=== PATIENT | male | born 1945 | race Two or more races ===

== ENCOUNTER 2023-05-30 11:57 | Inpatient (IN) | payer MEDICARE, MEDICAID ==
[~2023-05-30] VITALS: Ht 198.1 cm; Wt 73.5 kg
[2023-05-30 13:00] LABS: Urine Bacteria MOD /hpf (None Seen); Urine Blood 3+ /uL (Negative); Urine Specific Gravity 1.015 (1.001-1.035); Urine WBC 89 /hpf (0 - 3)
[2023-05-30] MEDS ORDERED: cefTRIAXone SOD 1,000 MG VL IM ONE (14:00)
[2023-05-30] MEDS ORDERED: SODIUM CHLORIDE 0.9% 500 ML IV ONE (14:15)
[2023-05-30] MEDS ORDERED: cefTRIAXone 1GM/50ML D5W 50 ML IV ONE (14:15)
[2023-05-30 14:56] LABS: Basophils # (auto) 0.1 10 ^3/uL (0-0.2); Hemoglobin 10.7 g/dL (13.5-17.5); Neutrophils # (auto) 4.5 10 ^3/uL (1.6-8.6)
[2023-05-30 14:58] LABS: Basophils % (auto) 0.7 % (0.0-2.0); Eosinophils # (auto) 0.3 10 ^3/uL (0-0.8); Eosinophils % (auto) 4.4 % (0.0-7.0); Hematocrit 33.7 % (41.0-53.0); Lymphocytes # (auto) 1.5 10 ^3/uL (0.4-5.4); Lymphocytes % (auto) 21.5 % (10.0-50.0); Mean Corpuscular Hemoglobin 21.2 pg (28.0-32.0); Mean Corpuscular Hgb Conc. 31.8 g/dL (32.0-36.0); Mean Corpuscular Volume 66.7 fL (80.0-100.0); Monocytes # (auto) 0.5 10 ^3/uL (0-1.3); Monocytes % (auto) 6.9 % (0.0-12.0); Neutrophils % (auto) 66.5 % (37.0-80.0); Nucleated Red Blood Cells % 0.3 %; Red Blood Cells 5.05 10^6/uL (4.5-5.90); Red Cell Distribution Width 15.4 % (11.8-14.3); White Blood Cell 6.8 10^3/uL (4.4-10.8)
[2023-05-30 15:04] LABS: INR 1.05 (0.9-1.15)
[2023-05-30 15:16] LABS: Calcium 8.4 mg/dL (8.5-10.1); Potassium 4.2 mmol/L (3.5-5.1)
[2023-05-30 15:35] LABS: Albumin 3.7 g/dL (3.4-5.0); BUN/Creatinine Ratio 17.4 (10.0-20.0); Bilirubin, Total 0.3 mg/dL (0.2-1.0); Total Protein 7.7 g/dL (6.4-8.2)
[2023-05-30] MEDS ORDERED: ONDANSETRON HCL 4 MG/2 ML VIAL IV PRN (16:15)
[2023-05-30] MEDS ORDERED: HYDROcodone-ACET 5/325MG TAB PO PRN (16:15)
[2023-05-30] MEDS ORDERED: MORPHINE SULFATE INJ 2 MG/ml SYRG IV PRN (16:15)
[2023-05-30] MEDS ORDERED: ACETAMINOPHEN 500 MG TAB PO PRN (16:15)
[2023-05-30] MEDS: CARBIDOPA W LEVODOPA 25/100mg TABLET PO SCH (21:52)
[2023-05-30 22:00] VITALS: BP 106/48
[2023-05-31 05:00] VITALS: BP 134/70
[2023-05-31] MEDS: CARBIDOPA W LEVODOPA 25/100mg TABLET PO SCH ×4 (06:00→21:49)
[2023-05-31 06:31] LABS: Eosinophils # (auto) 0.2 10 ^3/uL (0-0.8); Hematocrit 33.1 % (41.0-53.0); Hemoglobin 10.6 g/dL (13.5-17.5); Monocytes # (auto) 0.4 10 ^3/uL (0-1.3); Neutrophils # (auto) 4.7 10 ^3/uL (1.6-8.6); Red Blood Cells 4.93 10^6/uL (4.5-5.90)
[2023-05-31 06:33] LABS: Basophils # (auto) 0.1 10 ^3/uL (0-0.2); Basophils % (auto) 0.9 % (0.0-2.0); Eosinophils % (auto) 3.6 % (0.0-7.0); Lymphocytes # (auto) 1.1 10 ^3/uL (0.4-5.4); Lymphocytes % (auto) 17.4 % (10.0-50.0); Mean Corpuscular Hemoglobin 21.4 pg (28.0-32.0); Mean Corpuscular Hgb Conc. 31.9 g/dL (32.0-36.0); Monocytes % (auto) 5.5 % (0.0-12.0); Neutrophils % (auto) 72.6 % (37.0-80.0); Nucleated Red Blood Cells % 0.2 %; White Blood Cell 6.4 10^3/uL (4.4-10.8)
[2023-05-31 06:45] LABS: BUN/Creatinine Ratio 23.2 (10.0-20.0); Calcium 8.2 mg/dL (8.5-10.1); Potassium 3.7 mmol/L (3.5-5.1)
[2023-05-31 08:00] VITALS: BP 127/69
[2023-05-31] MEDS ORDERED: OXYB5TAB10 PO (08:00)
[2023-05-31] MEDS ORDERED: CLON0.1T PO (08:00)
[2023-05-31] MEDS ORDERED: CIPR500T4 PO (08:00)
[2023-05-31] MEDS ORDERED: TAMS0.4C36 PO (08:00)
[2023-05-31] MEDS ORDERED: MECL1TAB31 PO (08:00)
[2023-05-31] MEDS ORDERED: LOSA50TA46 PO (08:00)
[2023-05-31] MEDS ORDERED: CARB10TA21 (08:00)
[2023-05-31 10:08] VITALS: BP 127/69
[2023-05-31] MEDS: cefTRIAXone 1GM/50ML D5W 50 ML IV SCH (11:36)
[2023-05-31] MEDS: LOSARTAN POTASSIUM 50 MG TAB PO SCH (11:37)
[2023-05-31] MEDS: FUROSEMIDE 20 MG/2 ML VIAL IV SCH (11:38)
[2023-05-31 14:34] VITALS: BP 133/57
[2023-05-31] MEDS: TAMSULOSIN HYDROCHLORIDE 0.4 MG CAP PO SCH (18:12)
[2023-05-31 22:00] VITALS: BP 92/44
[2023-05-31 22:30] VITALS: BP 106/49
[2023-06-01] MEDS ORDERED: CARB25TA77 PO ×2 (00:01→00:08)
[2023-06-01] MEDS ORDERED: DIAZ-680 PO (00:18)
[2023-06-01] MEDS ORDERED: OXYBUTYNIN CHL 5 MG TAB PO PRN (00:30)
[2023-06-01 05:00] VITALS: BP 105/42
[2023-06-01] MEDS: CARBIDOPA W LEVODOPA 25/100mg TABLET PO SCH ×4 (06:00→21:10)
[2023-06-01 08:00] VITALS: BP 128/58
[2023-06-01] MEDS: cefTRIAXone 1GM/50ML D5W 50 ML IV SCH (08:34)
[2023-06-01 09:00] VITALS: BP 128/58
[2023-06-01] MEDS: FUROSEMIDE 20 MG/2 ML VIAL IV SCH (11:00)
[2023-06-01] MEDS: LOSARTAN POTASSIUM 50 MG TAB PO SCH (11:00)
[2023-06-01 13:00] VITALS: BP 125/61
[2023-06-01 17:00] VITALS: BP 101/41
[2023-06-01] MEDS: TAMSULOSIN HYDROCHLORIDE 0.4 MG CAP PO SCH (17:08)
[2023-06-01 22:00] VITALS: BP 89/44
[2023-06-02] MEDS ORDERED: TEMAZEPAM 15 MG CAP PO ONE (00:45)
[2023-06-02 05:00] VITALS: BP 105/46
[2023-06-02] MEDS: CARBIDOPA W LEVODOPA 25/100mg TABLET PO SCH ×3 (05:34→17:54)
[2023-06-02] MEDS: cefTRIAXone 1GM/50ML D5W 50 ML IV SCH (08:55)
[2023-06-02] MEDS: LOSARTAN POTASSIUM 50 MG TAB PO SCH (08:56)
[2023-06-02] MEDS: FUROSEMIDE 20 MG/2 ML VIAL IV SCH (08:56)
[2023-06-02 09:00] VITALS: BP 146/74
[2023-06-02 13:00] VITALS: BP 116/58
[2023-06-02 15:46] VITALS: BP 123/66
[2023-06-02 16:43] VITALS: BP 116/61
[2023-06-02] MEDS: TAMSULOSIN HYDROCHLORIDE 0.4 MG CAP PO SCH (17:45)
[2023-06-02] MEDS ORDERED: diazePAM 2 MG TAB PO SCH (22:00)
== END 2023-06-02 18:32 | DRG 690 ==
LOC: ER 11:57 → OVERFLOW 16:15 → CENTRAL 17:27
PROVIDERS: ADMIT Nurse Practitioner Acute Care; ATTEND Family Medicine
PROC: 05HB33Z Insertion of Infusion Device into Right Basilic Vein, Percutaneous Approach (ICD-10-PCS; principal; 2023-06-01)
PROC: B54MZZA Ultrasonography of Right Upper Extremity Veins, Guidance (ICD-10-PCS; 2023-06-01)
DX: N39.0 Urinary tract infection, site not specified (principal); Z68.1 Body mass index [BMI] 19.9 or less, adult; I10 Essential (primary) hypertension; G20 Parkinson's disease; E78.5 Hyperlipidemia, unspecified; E11.9 Type 2 diabetes mellitus without complications; Z90.79 Acquired absence of other genital organ(s); Z20.822 Contact with and (suspected) exposure to COVID-19; N40.1 Benign prostatic hyperplasia with lower urinary tract symptoms
CPT/HCPCS: 36415; 74176; 80048; 80053; 81001; 84154; 85025; 85610; 87040; 87086; 87426; 93306; 96360; 96372; G0378; J0696

== ENCOUNTER 2024-03-22 20:43 | Inpatient (IN) | payer MEDICARE, MEDICAID ==
[~2024-03-22] VITALS: Ht 167.6 cm; Wt 75.8 kg
[~2024-03-22 20:43] MED LIST: CARB25TA77 PO; CIPR500T4 PO; CLON0.1T PO; DIAZ-680 PO; MECL12.586 PO; OXYB5TAB14 PO; TAMS0.4C36 PO
[2024-03-22 21:38] LABS: Basophils # (auto) 0 10 ^3/uL (0-0.2); Basophils % (auto) 0.2 % (0.0-2.0); Eosinophils # (auto) 0 10 ^3/uL (0-0.8); Hemoglobin 11.9 g/dL (13.5-17.5); Neutrophils # (auto) 4.9 10 ^3/uL (1.6-8.6)
[2024-03-22 21:40] LABS: Eosinophils % (auto) 0.2 % (0.0-7.0); Hematocrit 37.3 % (41.0-53.0); Lymphocytes # (auto) 0.8 10 ^3/uL (0.4-5.4); Lymphocytes % (auto) 11.9 % (10.0-50.0); Mean Corpuscular Hemoglobin 20.9 pg (28.0-32.0); Mean Corpuscular Volume 65.5 fL (80.0-100.0); Monocytes # (auto) 0.9 10 ^3/uL (0-1.3); Monocytes % (auto) 13.8 % (0.0-12.0); Neutrophils % (auto) 73.9 % (37.0-80.0); Nucleated Red Blood Cells % 0.1 %; Red Blood Cells 5.69 10^6/uL (4.5-5.90); Red Cell Distribution Width 14.9 % (11.8-14.3); White Blood Cell 6.6 10^3/uL (4.4-10.8)
[2024-03-22 21:55] LABS: Albumin 4.3 g/dL (3.2-4.8); Alkaline Phosphatase 86 U/L (46-116); Anion Gap 8 (5-15); Aspartate Aminotransferase 37 U/L (13-40); BUN/Creatinine Ratio 13.9 (10.0-20.0); Blood Urea Nitrogen 16 mg/dL (9-23); Carbon Dioxide 23 mmol/L (20-30); Chloride 99 mmol/L (98-107); Glucose 151 mg/dL (74-106); Potassium 3.8 mmol/L (3.5-5.1); Sodium 130 mmol/L (136-145)
[2024-03-22 21:56] LABS: Bilirubin, Total 0.4 mg/dL (0.2-1.0); Total Protein 7.6 g/dL (5.7-8.2)
[2024-03-22 22:10] LABS: Alanine Aminotransferase < 9 U/L (7-40)
[2024-03-22 22:19] LABS: Anisocytosis Slight; Hypochromia Slight; Large Platelets FEW; Ovalocytes FEW; Platelet Estimate Adequa
[2024-03-22] MEDS ORDERED: NITROGLYCERIN 0.4 MG SL TAB SL PRN (23:30)
[2024-03-22] MEDS ORDERED: ONDANSETRON HCL 4 MG/2 ML VIAL IV PRN (23:30)
[2024-03-22] MEDS ORDERED: MORPHINE SULFATE INJ 2 MG/ml SYRG IV PRN (23:30)
[2024-03-23] VITALS (12 sets, daily range): BP systolic 96–190; BP diastolic 56–93; PULSE 89–123; RESP 16–24; TEMP 98.3–101.4; O2SAT 93–98
[2024-03-23] MEDS: NITROGLYCERIN 0.4 MG SL TAB SL ONE (00:13)
[2024-03-23] MEDS: ASPirin-EC 325mg tab PO ONE (00:17)
[2024-03-23] MEDS: FUROSEMIDE 40 MG/4 ML VIAL IV ONE ×2 (00:17→19:07)
[2024-03-23] MEDS: ENOXAPARIN SOD 100 MG/1 ML SYRINGE SC ONE (00:17)
[2024-03-23 04:37] LABS: Basophils # (auto) 0 10 ^3/uL (0-0.2); Basophils % (auto) 0.2 % (0.0-2.0); Eosinophils # (auto) 0 10 ^3/uL (0-0.8); Eosinophils % (auto) 0.2 % (0.0-7.0); Hematocrit 34.8 % (41.0-53.0); Hemoglobin 11.2 g/dL (13.5-17.5); Lymphocytes # (auto) 0.2 10 ^3/uL (0.4-5.4); Lymphocytes % (auto) 2.5 % (10.0-50.0); Mean Corpuscular Hemoglobin 21.2 pg (28.0-32.0); Mean Corpuscular Hgb Conc. 32.3 g/dL (32.0-36.0); Mean Corpuscular Volume 65.8 fL (80.0-100.0); Monocytes # (auto) 0.9 10 ^3/uL (0-1.3); Monocytes % (auto) 10.7 % (0.0-12.0); Neutrophils % (auto) 86.4 % (37.0-80.0); Nucleated Red Blood Cells % 0.1 %; Red Blood Cells 5.29 10^6/uL (4.5-5.90)
[2024-03-23 04:58] LABS: Albumin 3.9 g/dL (3.2-4.8); Alkaline Phosphatase 76 U/L (46-116); Anion Gap 7 (5-15); Aspartate Aminotransferase 37 U/L (13-40); BUN/Creatinine Ratio 16.7 (10.0-20.0); Blood Urea Nitrogen 19 mg/dL (9-23); Calcium 8.7 mg/dL (8.7-10.4); Carbon Dioxide 27 mmol/L (20-30); Chloride 97 mmol/L (98-107); Glucose 152 mg/dL (74-106); Potassium 3.8 mmol/L (3.5-5.1); Sodium 131 mmol/L (136-145)
[2024-03-23 04:59] LABS: Bilirubin, Total 0.3 mg/dL (0.2-1.0); Total Protein 6.9 g/dL (5.7-8.2)
[2024-03-23 05:01] LABS: Alanine Aminotransferase < 9 U/L (7-40)
[2024-03-23] MEDS ORDERED: TEMAZEPAM 15 MG CAP PO PRN (06:00)
[2024-03-23] MEDS: CARBIDOPA W LEVODOPA 25/100mg TABLET PO SCH (06:39)
[2024-03-23 10:20] LABS: Magnesium 1.8 mg/dL (1.6-2.6)
[2024-03-23 10:41] LABS: % Iron Saturation 8.2 % (20-55)
[2024-03-23 10:48] LABS: Ferritin 233.2 ng/mL (22-322); Folate (Folic Acid) 19.3 ng/mL (>5.38)
[2024-03-23] MEDS: DOXYCYCLINE 100MG/250ML 250 ML IV SCH (12:13)
[2024-03-23] MEDS: FUROSEMIDE 40 MG TAB PO SCH (12:17)
[2024-03-23] MEDS: cloNIDine HCL 0.1 MG TAB PO SCH (12:17)
[2024-03-23] MEDS: hydrALAZINE HCL 20 MG/ML VL IV PRN (12:40)
[2024-03-23] MEDS: ACETAMINOPHEN 325 MG TAB PO PRN (14:15)
[2024-03-23] MEDS: cefTRIAXone 1GM/50ML D5W 50 ML IV ONE (14:16)
[2024-03-23] MEDS: FUROSEMIDE 20 MG/2 ML VIAL IV ONE (15:00)
[2024-03-23] MEDS: ALBUTEROL SULF 2.5 MG/0.5ML(0.5%) NEB SOLN ONE (15:18)
[2024-03-23 15:51] LABS: INR 1.04 (0.9-1.15); Partial Thromboplastin Time 35.1 SEC (24.5-34.5); Prothrombin Time 10.9 sec (9.3-11.8)
[2024-03-23] MEDS: CHOLECALCIFEROL (VITD3) 1,000UNIT=25mCg TAB PO ONE (16:45)
[2024-03-23] MEDS ORDERED: DEXTROSE (50%) 50ML SYRG IV PRN (16:45)
[2024-03-23] MEDS: TAMSULOSIN HYDROCHLORIDE 0.4 MG CAP PO SCH (19:00)
[2024-03-23] MEDS: ACCU-CHEK COMFORT CURVE STRIP VI SCH (19:00)
[2024-03-23] MEDS: InsuLIN REG 1unit/0.01ml Soln (100units/ml) SC SCH (19:17)
[2024-03-23] MEDS: SACUBITRIL-VALSARTAN 24mg/26mg TAB PO SCH (22:00)
[2024-03-23] MEDS: ATORVASTATIN 20 MG TAB PO SCH (22:00)
[2024-03-23] MEDS: ENOXAPARIN SOD 40 MG/0.4 ML SYRINGE SC SCH (22:00)
[2024-03-23] MEDS ORDERED: ACETAMINOPHEN 650 MG RECT SUPP PR PRN (22:30)
[2024-03-23] MEDS: ACETAMINOPHEN 650 MG RECT SUPP PR ONE (22:40)
[2024-03-23 23:00] LABS: Basophils # (auto) 0 10 ^3/uL (0-0.2); Basophils % (auto) 0.1 % (0.0-2.0); Eosinophils # (auto) 0 10 ^3/uL (0-0.8); Lymphocytes # (auto) 0.5 10 ^3/uL (0.4-5.4); Monocytes # (auto) 0.9 10 ^3/uL (0-1.3)
[2024-03-23 23:02] LABS: Hematocrit 38.2 % (41.0-53.0); Hemoglobin 11.9 g/dL (13.5-17.5); Lymphocytes % (auto) 6.2 % (10.0-50.0); Mean Corpuscular Hemoglobin 20.5 pg (28.0-32.0); Mean Corpuscular Hgb Conc. 31.3 g/dL (32.0-36.0); Mean Corpuscular Volume 65.7 fL (80.0-100.0); Monocytes % (auto) 10.8 % (0.0-12.0); Neutrophils # (auto) 6.7 10 ^3/uL (1.6-8.6); Neutrophils % (auto) 82.9 % (37.0-80.0); Nucleated Red Blood Cells % 0.1 %; Red Blood Cells 5.81 10^6/uL (4.5-5.90); Red Cell Distribution Width 15.4 % (11.8-14.3); White Blood Cell 8.1 10^3/uL (4.4-10.8)
[2024-03-23 23:18] LABS: Albumin 4.2 g/dL (3.2-4.8); Alkaline Phosphatase 82 U/L (46-116); Anion Gap 6 (5-15); Aspartate Aminotransferase 33 U/L (13-40); Blood Urea Nitrogen 19 mg/dL (9-23); Calcium 8.8 mg/dL (8.7-10.4); Carbon Dioxide 31 mmol/L (20-30); Chloride 93 mmol/L (98-107); Glucose 157 mg/dL (74-106); Potassium 3.8 mmol/L (3.5-5.1); Sodium 130 mmol/L (136-145)
[2024-03-23 23:19] LABS: Bilirubin, Total 0.3 mg/dL (0.2-1.0); Total Protein 7.4 g/dL (5.7-8.2)
[2024-03-23 23:50] LABS: Alanine Aminotransferase < 9 U/L (7-40)
[2024-03-24] VITALS (14 sets, daily range): BP systolic 0–150; BP diastolic 59–84; PULSE 81–113; RESP 17–20; TEMP 98–98.6; O2SAT 94–98
[2024-03-24 01:55] LABS: Base Excess -1.1 mmol/L (-2.0-2.0)
[2024-03-24 06:22] LABS: Basophils # (auto) 0 10 ^3/uL (0-0.2); Basophils % (auto) 0.1 % (0.0-2.0); Eosinophils # (auto) 0 10 ^3/uL (0-0.8); Lymphocytes # (auto) 0.4 10 ^3/uL (0.4-5.4); Mean Corpuscular Volume 65.8 fL (80.0-100.0); Monocytes # (auto) 1.2 10 ^3/uL (0-1.3)
[2024-03-24 06:26] LABS: Eosinophils % (auto) 0.1 % (0.0-7.0); Hemoglobin 11.9 g/dL (13.5-17.5); Lymphocytes % (auto) 6.2 % (10.0-50.0); Mean Corpuscular Hemoglobin 21.1 pg (28.0-32.0); Monocytes % (auto) 16.3 % (0.0-12.0); Neutrophils # (auto) 5.5 10 ^3/uL (1.6-8.6); Neutrophils % (auto) 77.3 % (37.0-80.0); Nucleated Red Blood Cells % 0.1 %; Red Blood Cells 5.62 10^6/uL (4.5-5.90); White Blood Cell 7.1 10^3/uL (4.4-10.8)
[2024-03-24 06:29] LABS: Anion Gap 7 (5-15); Carbon Dioxide 31 mmol/L (20-30); Chloride 93 mmol/L (98-107); Potassium 3.7 mmol/L (3.5-5.1); Sodium 131 mmol/L (136-145)
[2024-03-24 06:30] LABS: Calcium 8.6 mg/dL (8.5-10.1)
[2024-03-24 06:35] LABS: BUN/Creatinine Ratio 17.6 (10.0-20.0); Blood Urea Nitrogen 18 mg/dL (9-23); Glucose 121 mg/dL (74-106)
[2024-03-24 07:03] LABS: Magnesium 1.8 mg/dL (1.6-2.6)
[2024-03-24 08:58] LABS: Base Excess 0.7 mmol/L (-2.0-2.0)
[2024-03-24] MEDS: cefTRIAXone 1GM/50ML D5W 50 ML IV SCH (09:11)
[2024-03-24] MEDS: FUROSEMIDE 40 MG/4 ML VIAL IV SCH (09:12)
[2024-03-24] MEDS: CHOLECALCIFEROL (VITD3) 1,000UNIT=25mCg TAB PO SCH (09:12)
[2024-03-24] MEDS: LORazepam 2MG/ML-1ML VIAL IV ONE (09:15)
[2024-03-24] MEDS: FUROSEMIDE 20 MG/2 ML VIAL ONE (11:31)
[2024-03-25] VITALS (12 sets, daily range): BP systolic 103–132; BP diastolic 47–66; PULSE 90–117; RESP 16–21; TEMP 98.2–99.4; O2SAT 91–98
[2024-03-25 08:53] LABS: Base Excess 6.4 mmol/L (-2.0-2.0)
[2024-03-25 09:04] LABS: Basophils # (auto) 0 10 ^3/uL (0-0.2); Eosinophils # (auto) 0 10 ^3/uL (0-0.8); Hemoglobin 12.5 g/dL (13.5-17.5); Lymphocytes # (auto) 0.3 10 ^3/uL (0.4-5.4); Lymphocytes % (auto) 4.8 % (10.0-50.0)
[2024-03-25 09:06] LABS: Basophils % (auto) 0.3 % (0.0-2.0); Hematocrit 39.2 % (41.0-53.0); Mean Corpuscular Hemoglobin 20.8 pg (28.0-32.0); Mean Corpuscular Hgb Conc. 31.9 g/dL (32.0-36.0); Mean Corpuscular Volume 65.2 fL (80.0-100.0); Monocytes # (auto) 0.9 10 ^3/uL (0-1.3); Monocytes % (auto) 13.2 % (0.0-12.0); Neutrophils # (auto) 5.3 10 ^3/uL (1.6-8.6); Neutrophils % (auto) 81.7 % (37.0-80.0); Red Blood Cells 6.01 10^6/uL (4.5-5.90); Red Cell Distribution Width 15.1 % (11.8-14.3); White Blood Cell 6.5 10^3/uL (4.4-10.8)
[2024-03-25 09:15] LABS: Anion Gap 7 (5-15); Carbon Dioxide 33 mmol/L (20-30); Chloride 91 mmol/L (98-107); Potassium 3.9 mmol/L (3.5-5.1); Sodium 131 mmol/L (136-145)
[2024-03-25] MEDS: acetaZOLAMIDE SODIUM 500 MG VL IV ONE (09:15)
[2024-03-25 09:21] LABS: BUN/Creatinine Ratio 21.4 (10.0-20.0); Blood Urea Nitrogen 18 mg/dL (9-23); Glucose 151 mg/dL (74-106)
[2024-03-25] MEDS: ALBUTEROL SULF 2.5 MG/0.5ML(0.5%) NEB SOLN NEB PRN (10:29)
[2024-03-25] MEDS: FUROSEMIDE 20 MG/2 ML VIAL IV SCH (10:50)
[2024-03-25 11:01] LABS: Magnesium 1.9 mg/dL (1.6-2.6)
[2024-03-25] MEDS ORDERED: DIAZ10TA3 PO (11:43)
[2024-03-25] MEDS ORDERED: AMIT25TA20 PO (12:05)
[2024-03-25] MEDS ORDERED: NITR100C6 PO (12:05)
[2024-03-25] MEDS ORDERED: ATOR10TA PO (12:05)
[2024-03-25] MEDS ORDERED: MIRT1TAB38 PO (12:05)
[2024-03-25] MEDS ORDERED: LOSA-534 PO (12:05)
[2024-03-25] MEDS ORDERED: FINA5TAB4 PO (12:05)
[2024-03-25 14:33] LABS: Body Fluid Polymorphonuclear 10 % (0-25); Body Fluid Red Blood Cells 2350 CUMM (0-2000); Body Fluid White Blood Cells 220 CUMM (0-200); Body Fluid pH 8
[2024-03-25] MEDS: ASPirin 81 mg TAB PO ONE (18:49)
[2024-03-25 20:18] LABS: Alanine Aminotransferase 16 U/L (7-40); Albumin 3.5 g/dL (3.2-4.8); Alkaline Phosphatase 68 U/L (46-116); Anion Gap 5 (5-15); Aspartate Aminotransferase 23 U/L (13-40); BUN/Creatinine Ratio 18.5 (10.0-20.0); Bilirubin, Total 0.3 mg/dL (0.2-1.0); Blood Urea Nitrogen 17 mg/dL (9-23); Calcium 8.6 mg/dL (8.5-10.1); Carbon Dioxide 33 mmol/L (20-30); Chloride 94 mmol/L (98-107); Glucose 184 mg/dL (74-106); Potassium 3.8 mmol/L (3.5-5.1); Sodium 132 mmol/L (136-145); Total Protein 6.5 g/dL (5.7-8.2)
[2024-03-26] VITALS (15 sets, daily range): BP systolic 89–143; BP diastolic 38–68; PULSE 72–98; RESP 13–22; TEMP 98.1–99.9; O2SAT 93–100
[2024-03-26 05:47] LABS: Hemoglobin 11.3 g/dL (13.5-17.5)
[2024-03-26 05:50] LABS: Hematocrit 36.2 % (41.0-53.0); Mean Corpuscular Hemoglobin 20.4 pg (28.0-32.0); Mean Corpuscular Hgb Conc. 31.2 g/dL (32.0-36.0); Mean Corpuscular Volume 65.3 fL (80.0-100.0); Red Blood Cells 5.55 10^6/uL (4.5-5.90); Red Cell Distribution Width 15.1 % (11.8-14.3); White Blood Cell 6.5 10^3/uL (4.4-10.8)
[2024-03-26 05:56] LABS: INR 1.06 (0.9-1.15); Partial Thromboplastin Time 29.7 SEC (24.5-34.5); Prothrombin Time 11.2 sec (9.3-11.8)
[2024-03-26 06:05] LABS: Basophils % (manual) 0 (0.0-2.0); Blast Cells 0; Chloride 94 mmol/L (98-107); Metamyelocytes % 0; Myelocytes % 0; Potassium 3.8 mmol/L (3.5-5.1); Promyelocytes % 0; Reactive Lymphocytes 0; Sodium 132 mmol/L (136-145)
[2024-03-26 06:06] LABS: Anion Gap 5 (5-15); Calcium 8.5 mg/dL (8.5-10.1); Carbon Dioxide 33 mmol/L (20-30)
[2024-03-26 06:11] LABS: BUN/Creatinine Ratio 25.3 (10.0-20.0); Blood Urea Nitrogen 21 mg/dL (9-23); Glucose 139 mg/dL (74-106)
[2024-03-26 08:24] LABS: Band Neutrophils % (manual) 4; Eosinophils % (manual) 6 (0-7); Hypochromia Moderate; Lymphocytes % (manual) 14 (10.0-50.0); Monocytes % (manual) 12 (0-12); Platelet Estimate Adequate; Target Cell FEW
[2024-03-26] MEDS: VERAPAMIL 2.5MG/ML INJ 2ML VIAL IV ONE (08:48)
[2024-03-26] MEDS: ANGIOMAX 250 MG VIAL IV ONE (08:48)
[2024-03-26] MEDS: HEPARIN SODIUM (PORCINE) 5000 UNITS/ML 1ML VIAL ONE (08:48)
[2024-03-26] MEDS: LIDOCAINE 2%HCL (LOCAL ANESTH.) INJ 20ML MDV ONE (08:49)
[2024-03-26] MEDS: fentaNYL CITRATE 100 MCG/2 ML VL ONE (08:49)
[2024-03-26] MEDS: SODIUM CHL 0.9% 50 ML ONE (08:49)
[2024-03-26] MEDS: HEPARIN IN NS 1000Units/500mL 1,500 ML ONE (08:49)
[2024-03-26] MEDS: MIDAZOLAM HCL 2MG/2ML 2ml VIAL (1mg/ml) ONE (08:49)
[2024-03-26] MEDS: IODIXANOL 320MG/ML 100ML BTL IV ONE ×2 (08:49→10:28)
[2024-03-26] MEDS: ASPirin 81 mg TAB PO SCH (10:00)
[2024-03-26 12:07] LABS: Protein, Body Fluid 5.5 g/dL (.)
[2024-03-26 13:28] LABS: Basophils # (auto) 0 10 ^3/uL (0-0.2); Eosinophils # (auto) 0.1 10 ^3/uL (0-0.8); Hemoglobin 12.1 g/dL (13.5-17.5); Lymphocytes # (auto) 0.5 10 ^3/uL (0.4-5.4); Mean Corpuscular Volume 65.1 fL (80.0-100.0); Monocytes # (auto) 0.9 10 ^3/uL (0-1.3); Neutrophils # (auto) 5.5 10 ^3/uL (1.6-8.6)
[2024-03-26 13:30] LABS: Basophils % (auto) 0.3 % (0.0-2.0); Eosinophils % (auto) 0.7 % (0.0-7.0); Hematocrit 38.3 % (41.0-53.0); Lymphocytes % (auto) 7.4 % (10.0-50.0); Mean Corpuscular Hemoglobin 20.6 pg (28.0-32.0); Mean Corpuscular Hgb Conc. 31.6 g/dL (32.0-36.0); Monocytes % (auto) 13.4 % (0.0-12.0); Neutrophils % (auto) 78.2 % (37.0-80.0); Red Blood Cells 5.87 10^6/uL (4.5-5.90); Red Cell Distribution Width 15.1 % (11.8-14.3); White Blood Cell 7.1 10^3/uL (4.4-10.8)
[2024-03-26 13:41] LABS: INR 1.24 (0.9-1.15); Partial Thromboplastin Time 46.9 SEC (24.5-34.5); Prothrombin Time 12.9 sec (9.3-11.8)
[2024-03-26] MEDS: HEPARIN DRIP/D5W 100UNITS/ML 250 ML IV SCH (15:40)
[2024-03-26 22:18] LABS: INR 1.07 (0.9-1.15); Partial Thromboplastin Time 29.2 SEC (24.5-34.5); Prothrombin Time 11.3 sec (9.3-11.8)
[2024-03-26] MEDS: HEPARIN SODIUM (PORCINE) 5000 UNITS/ML 1ML VIAL IV ONE (23:12)
[2024-03-27 01:00] VITALS: BP 132/87; PULSE 70; RESP 18; TEMP 98.7; O2SAT 95
[2024-03-27 05:00] VITALS: BP 124/56; PULSE 96; RESP 20; TEMP 98.4; O2SAT 98
[2024-03-27 06:27] LABS: Basophils # (auto) 0 10 ^3/uL (0-0.2); Mean Corpuscular Hemoglobin 20.6 pg (28.0-32.0)
[2024-03-27 06:29] LABS: Chloride 95 mmol/L (98-107); Potassium 3.9 mmol/L (3.5-5.1); Sodium 133 mmol/L (136-145)
[2024-03-27 06:30] LABS: Anion Gap 8 (5-15); Basophils % (auto) 0.4 % (0.0-2.0); Calcium 8.9 mg/dL (8.7-10.4); Carbon Dioxide 30 mmol/L (20-30); Eosinophils # (auto) 0 10 ^3/uL (0-0.8); Eosinophils % (auto) 0.6 % (0.0-7.0); Hematocrit 39.6 % (41.0-53.0); Hemoglobin 12.3 g/dL (13.5-17.5); Lymphocytes # (auto) 0.5 10 ^3/uL (0.4-5.4); Mean Corpuscular Volume 66.4 fL (80.0-100.0); Monocytes # (auto) 1.3 10 ^3/uL (0-1.3); Monocytes % (auto) 16.7 % (0.0-12.0); Neutrophils # (auto) 5.8 10 ^3/uL (1.6-8.6); Neutrophils % (auto) 76.3 % (37.0-80.0); Nucleated Red Blood Cells % 0.1 %; Red Blood Cells 5.95 10^6/uL (4.5-5.90); Red Cell Distribution Width 14.9 % (11.8-14.3); White Blood Cell 7.7 10^3/uL (4.4-10.8)
[2024-03-27 06:35] LABS: BUN/Creatinine Ratio 21.4 (10.0-20.0); Blood Urea Nitrogen 15 mg/dL (9-23); Glucose 154 mg/dL (74-106)
[2024-03-27 08:07] LABS: Albumin 3.6 g/dL (3.2-4.8); Hypochromia Moderate; Platelet Estimate Adequate
[2024-03-27 08:08] LABS: Bilirubin, Direct 0.2 mg/dL (<0.3); Bilirubin, Total 0.4 mg/dL (0.2-1.0); Total Protein 6.8 g/dL (5.7-8.2)
[2024-03-27 09:09] LABS: Magnesium 2.2 mg/dL (1.6-2.6)
== END 2024-03-27 07:20 | disposition short-term general hospital (02) | DRG 177 ==
LOC: ER 20:43 → TELE 23:31 → TELE-CENTR 03-23 04:45
PROVIDERS: ADMIT Internal Medicine Pulmonary Disease; ATTEND Internal Medicine Pulmonary Disease
PROC: 5A09357 Assistance with Respiratory Ventilation, Less than 24 Consecutive Hours, Continuous Positive Airway Pressure (ICD-10-PCS; 2024-03-24)
PROC: 0W993ZZ Drainage of Right Pleural Cavity, Percutaneous Approach (ICD-10-PCS; principal; 2024-03-25)
PROC: 4A023N7 Measurement of Cardiac Sampling and Pressure, Left Heart, Percutaneous Approach (ICD-10-PCS; 2024-03-26)
PROC: B211YZZ Fluoroscopy of Multiple Coronary Arteries using Other Contrast (ICD-10-PCS; 2024-03-26)
PROC: B215YZZ Fluoroscopy of Left Heart using Other Contrast (ICD-10-PCS; 2024-03-26)
DX: J15.69 Pneumonia due to other Gram-negative bacteria (principal); I21.4 Non-ST elevation (NSTEMI) myocardial infarction; I50.43 Acute on chronic combined systolic (congestive) and diastolic (congestive) heart failure; J96.01 Acute respiratory failure with hypoxia; J91.8 Pleural effusion in other conditions classified elsewhere; J15.9 Unspecified bacterial pneumonia; I11.0 Hypertensive heart disease with heart failure; E11.9 Type 2 diabetes mellitus without complications; E78.5 Hyperlipidemia, unspecified; G20.A1 Parkinson's disease without dyskinesia, without mention of fluctuations; N40.0 Benign prostatic hyperplasia without lower urinary tract symptoms; I16.0 Hypertensive urgency; D50.9 Iron deficiency anemia, unspecified; E55.9 Vitamin D deficiency, unspecified; K80.20 Calculus of gallbladder without cholecystitis without obstruction; I25.10 Atherosclerotic heart disease of native coronary artery without angina pectoris; I27.20 Pulmonary hypertension, unspecified; Z87.440 Personal history of urinary (tract) infections
CPT/HCPCS: 32555; 36415; 36600; 70450; 71045; 71250; 76604; 76942; 80048; 80053; 80061; 80076; 82306; 82607; 82728; 82746; 82805; 82962; 83036; 83540; 83550; 83605; 83615; 83735; 83880; 83986; 84443; 84484; 85007; 85025; 85027; 85610; 85730; 86850; 86900; 86901; 87040; 87070; 87205; 89051; 93005; 93306; 93458; 94640; 94660; 96372; 96374; 99152; G0378; J1815; J2250; J3490; Q9967

== ENCOUNTER 2024-04-04 07:36 | Inpatient (IN) | payer MEDICARE, MEDICAID ==
[~2024-04-04] VITALS: Ht 162.6 cm; Wt 70.6 kg
[2024-04-04] VITALS (42 sets, daily range): BP systolic 107–182; BP diastolic 34–125; PULSE 84–120; RESP 13–34; TEMP 97.9–98.5; O2SAT 91–100
[~2024-04-04 07:36] MED LIST changes: +AMIT25TA20 PO; +ATOR10TA PO; -DIAZ-680 PO; +DIAZ10TA3 PO; +FINA5TAB4 PO; +LOSA-534 PO; +MIRT1TAB38 PO; +NITR100C6 PO
[2024-04-04 08:19] LABS: Chloride 97 mmol/L (98-107); Hemoglobin 11.2 g/dL (13.5-17.5); Potassium 3.7 mmol/L (3.5-5.1); Sodium 139 mmol/L (136-145)
[2024-04-04 08:20] LABS: Anion Gap 9 (5-15); Carbon Dioxide 33 mmol/L (20-30)
[2024-04-04 08:21] LABS: Calcium 9.2 mg/dL (8.5-10.1); Mean Corpuscular Hemoglobin 20.5 pg (28.0-32.0); Mean Corpuscular Hgb Conc. 30.3 g/dL (32.0-36.0); Mean Corpuscular Volume 67.6 fL (80.0-100.0); Red Blood Cells 5.48 10^6/uL (4.5-5.90); Red Cell Distribution Width 15.3 % (11.8-14.3); White Blood Cell 10.1 10^3/uL (4.4-10.8)
[2024-04-04 08:25] LABS: BUN/Creatinine Ratio 18.3 (10.0-20.0); Blood Urea Nitrogen 17 mg/dL (9-23); Glucose 247 mg/dL (74-106)
[2024-04-04 08:27] LABS: Basophils % (manual) 0 (0.0-2.0); Blast Cells 0; Eosinophils % (manual) 0 (0-7); Metamyelocytes % 0; Myelocytes % 0; Promyelocytes % 0; Reactive Lymphocytes 0
[2024-04-04 08:30] LABS: Urine Bacteria None Seen /hpf (None Seen)
[2024-04-04] MEDS: IOHEXOL 350 MG/ML 100ML IJ ONE ×3 (08:30→21:15)
[2024-04-04 08:35] LABS: Lymphocytes % (manual) 1 (10.0-50.0); Monocytes % (manual) 5 (0-12)
[2024-04-04 08:36] LABS: Band Neutrophils % (manual) 3
[2024-04-04 08:37] LABS: Anisocytosis Slight; Hypochromia Slight; Platelet Estimate Adequate
[2024-04-04 08:44] LABS: Lactic Acid w/Reflex 3.9 mmol/L (0.4-2.0)
[2024-04-04 08:46] LABS: Urine Blood Negative /uL (Negative); Urine Clarity Clear (Clear); Urine Color Light-Yellow (Yellow); Urine Hyaline Cast FEW /lpf (0 - 2); Urine Mucus FEW (None Seen); Urine Protein, UAD 1+ (Negative); Urine Specific Gravity 1.015 (1.001-1.035); Urine Urobilinogen Normal (Negative); Urine WBC 2 /hpf (0 - 3)
[2024-04-04] MEDS: SODIUM CHLORIDE 0.9% 1,800 ML IV ONE (09:06)
[2024-04-04] MEDS: cefTRIAXone 1GM/50ML D5W 50 ML IV ONE (09:15)
[2024-04-04] MEDS: AZITHROMYCIN 500MG/ 250ML 250 ML IV ONE (09:32)
[2024-04-04] MEDS: AZITHROMYCIN 500MG/ 250ML 250 ML IV SCH (09:32)
[2024-04-04] MEDS ORDERED: OXYBUTYNIN CHL 5 MG TAB PO PRN (09:45)
[2024-04-04] MEDS ORDERED: ACETAMINOPHEN 325 MG TAB PO PRN (09:45)
[2024-04-04] MEDS ORDERED: MORPHINE SULFATE INJ 2 MG/ml SYRG IV PRN (09:45)
[2024-04-04] MEDS ORDERED: ALBUTEROL SULF 2.5 MG/0.5ML(0.5%) NEB SOLN NEB PRN (09:45)
[2024-04-04] MEDS ORDERED: NITROGLYCERIN 0.4 MG SL TAB SL PRN (09:45)
[2024-04-04] MEDS ORDERED: HYDROcodone-ACET 5/325MG TAB PO PRN (09:45)
[2024-04-04] MEDS: LEVALBUTEROL HCL 1.25 MG/3 ML NEB NEB SCH (10:00)
[2024-04-04] MEDS: FINASTERIDE 5 MG TAB PO SCH (10:00)
[2024-04-04] MEDS: TAMSULOSIN HYDROCHLORIDE 0.4 MG CAP PO SCH (10:00)
[2024-04-04] MEDS: AMITRIPTYLINE HCL 25 MG TAB PO SCH (10:00)
[2024-04-04] MEDS: LOSARTAN POTASSIUM 50 MG TAB PO SCH (10:00)
[2024-04-04] MEDS: ATORVASTATIN 20 MG TAB PO SCH (10:00)
[2024-04-04] MEDS: TICAGRELOR 90 MG TAB PO SCH (10:00)
[2024-04-04] MEDS: IPRATROPIUM BROM 0.5 MG/2.5ML INH SOL NEB SCH (10:00)
[2024-04-04] MEDS ORDERED: MECLIZINE HCL 25 MG TAB PO PRN (10:30)
[2024-04-04 10:40] LABS: Base Excess 5.2 mmol/L (-2.0-2.0)
[2024-04-04] MEDS ORDERED: diazePAM 5 MG TAB PO PRN (10:45)
[2024-04-04] MEDS: SODIUM CHLORIDE 0.9% 1,000 ML IV SCH (11:13)
[2024-04-04] MEDS: InsuLIN REG 1unit/0.01ml Soln (100units/ml) SC SCH (11:30)
[2024-04-04] MEDS: CARBIDOPA W LEVODOPA 25/100mg TABLET PO SCH (12:00)
[2024-04-04] MEDS: ACCU-CHEK COMFORT CURVE STRIP VI SCH (12:16)
[2024-04-04] MEDS: MORPHINE SULFATE INJ 2 MG/ml SYRG IV ONE (13:21)
[2024-04-04] MEDS: ONDANSETRON HCL 4 MG/2 ML VIAL IV PRN (13:22)
[2024-04-04] MEDS: MORPHINE SULFATE INJ 2 MG/ml SYRG ONE (13:22)
[2024-04-04] MEDS ORDERED: HEPARIN SODIUM (PORCINE) 5000 UNITS/ML 1ML VIAL IV ONE (14:45)
[2024-04-04] MEDS ORDERED: HEPARIN DRIP/D5W 100UNITS/ML 250 ML IV SCH (14:45)
[2024-04-04 14:52] LABS: Basophils # (auto) 0 10 ^3/uL (0-0.2); Basophils % (auto) 0.2 % (0.0-2.0); Eosinophils # (auto) 0 10 ^3/uL (0-0.8); Monocytes # (auto) 0.7 10 ^3/uL (0-1.3); Monocytes % (auto) 8.2 % (0.0-12.0)
[2024-04-04 14:53] LABS: Hematocrit 35.2 % (41.0-53.0); Hemoglobin 10.7 g/dL (13.5-17.5); Lymphocytes # (auto) 0.4 10 ^3/uL (0.4-5.4); Lymphocytes % (auto) 4.5 % (10.0-50.0); Mean Corpuscular Hemoglobin 20.5 pg (28.0-32.0); Mean Corpuscular Hgb Conc. 30.4 g/dL (32.0-36.0); Mean Corpuscular Volume 67.3 fL (80.0-100.0); Neutrophils % (auto) 87.1 % (37.0-80.0); Red Blood Cells 5.23 10^6/uL (4.5-5.90); Red Cell Distribution Width 15.4 % (11.8-14.3); White Blood Cell 8.1 10^3/uL (4.4-10.8)
[2024-04-04 15:07] LABS: INR 1.11 (0.9-1.15); Partial Thromboplastin Time 25.9 SEC (24.5-34.5); Prothrombin Time 11.7 sec (9.3-11.8)
[2024-04-04 16:26] LABS: Body Fluid pH 7
[2024-04-04 17:07] LABS: Body Fluid Polymorphonuclear 3 % (0-25); Body Fluid Red Blood Cells 23920 CUMM (0-2000); Body Fluid White Blood Cells 65 CUMM (0-200)
[2024-04-04 17:49] LABS: Base Excess 2.6 mmol/L (-2.0-2.0)
[2024-04-04] MEDS: MIRTAZAPINE 7.5 MG PO SCH (18:00)
[2024-04-04] MEDS: NALOXONE HCL 0.4 MG/ML VIAL IV ONE ×2 (18:20→22:35)
[2024-04-04 18:40] LABS: Base Excess 7.1 mmol/L (-2.0-2.0)
[2024-04-04 19:18] LABS: Hematocrit 38.2 % (41.0-53.0); Hemoglobin 11.4 g/dL (13.5-17.5)
[2024-04-04 20:24] LABS: Base Excess 5.4 mmol/L (-2.0-2.0)
[2024-04-04] MEDS ORDERED: TICAGRELOR 90 MG TAB PO SCH (22:00)
[2024-04-04] MEDS: NALOXONE HCL 0.4 MG/ML VIAL ONE (22:51)
[2024-04-04 22:57] LABS: Base Excess 8.4 mmol/L (-2.0-2.0)
[2024-04-04] MEDS: ETOMIDATE (2MG/ML) 20ML VIAL IV ONE ×2 (23:03→23:19)
[2024-04-04] MEDS: SUCCINYLCHOLINE CHLORIDE 20 MG/ML 10ML VIAL IV ONE ×2 (23:04→23:19)
[2024-04-04] MEDS: MIDAZOLAM DRIP 50 mg/50mL 50 ML IV ONE ×2 (23:23→23:46)
[2024-04-05] VITALS (109 sets, daily range): BP systolic 89–162; BP diastolic 37–96; PULSE 64–117; RESP 15–26; TEMP 97.8–99.9; O2SAT 94–100
[2024-04-05] MEDS: MIDAZOLAM DRIP 50 mg/50mL 50 ML IV SCH
[2024-04-05] MEDS: PHENYLEPHRINE IV 250 ML IV SCH (00:30)
[2024-04-05] MEDS: PHENYLEPHRINE IV 250 ML IV ONE (00:38)
[2024-04-05 01:17] LABS: Base Excess 8.7 mmol/L (-2.0-2.0)
[2024-04-05 06:37] LABS: Base Excess 6.1 mmol/L (-2.0-2.0)
[2024-04-05 06:49] LABS: Basophils # (auto) 0 10 ^3/uL (0-0.2); Eosinophils # (auto) 0 10 ^3/uL (0-0.8); Hemoglobin 9.5 g/dL (13.5-17.5); Lymphocytes # (auto) 0.3 10 ^3/uL (0.4-5.4); Lymphocytes % (auto) 5.9 % (10.0-50.0); Monocytes # (auto) 0.7 10 ^3/uL (0-1.3); Nucleated Red Blood Cells % 0.1 %
[2024-04-05 06:52] LABS: Basophils % (auto) 0.6 % (0.0-2.0); Eosinophils % (auto) 0.1 % (0.0-7.0); Hematocrit 30.9 % (41.0-53.0); Mean Corpuscular Hemoglobin 20.5 pg (28.0-32.0); Mean Corpuscular Hgb Conc. 30.8 g/dL (32.0-36.0); Mean Corpuscular Volume 66.6 fL (80.0-100.0); Monocytes % (auto) 12.7 % (0.0-12.0); Neutrophils # (auto) 4.6 10 ^3/uL (1.6-8.6); Neutrophils % (auto) 80.7 % (37.0-80.0); Red Blood Cells 4.63 10^6/uL (4.5-5.90); Red Cell Distribution Width 15.5 % (11.8-14.3); White Blood Cell 5.7 10^3/uL (4.4-10.8)
[2024-04-05 07:09] LABS: Alanine Aminotransferase 18 U/L (7-40); Albumin 3.2 g/dL (3.2-4.8); Alkaline Phosphatase 52 U/L (46-116); Anion Gap 9 (5-15); Aspartate Aminotransferase 23 U/L (13-40); Blood Urea Nitrogen 17 mg/dL (9-23); Calcium 8.7 mg/dL (8.5-10.1); Carbon Dioxide 30 mmol/L (20-30); Chloride 103 mmol/L (98-107); Glucose 100 mg/dL (74-106); Potassium 3.9 mmol/L (3.5-5.1); Sodium 142 mmol/L (136-145)
[2024-04-05 07:10] LABS: Bilirubin, Total 0.3 mg/dL (0.2-1.0)
[2024-04-05] MEDS ORDERED: cefTRIAXone 1GM/50ML D5W 50 ML IV SCH (09:00)
[2024-04-05] MEDS ORDERED: VANCOMYCIN PER PHARMACY 0 MG IV SCH (09:30)
[2024-04-05] MEDS: CATHFLO ACTIVASE (ALTEPLASE) 2 MG VIAL IV ONE (10:00)
[2024-04-05] MEDS: VANCOMYCIN 1GM/200ML 200 ML IV ONE (11:37)
[2024-04-05 13:09] LABS: Magnesium 2.2 mg/dL (1.6-2.6)
[2024-04-05 14:13] LABS: COVID19 ANTIGEN SOFIA FIA NEGATIVE (NEGATIVE); Rapid Influenza A Negative (Negative); Rapid Influenza B Negative (Negative)
[2024-04-05] MEDS: CEFEPIME 1GM/ 50ML 50 ML IV SCH (14:25)
[2024-04-05] MEDS: PANTOPRAZOLE 40 MG/10 ML VIAL INJ IV ONE (14:25)
[2024-04-05] MEDS: hydrALAZINE HCL 20 MG/ML VL IV PRN (18:36)
[2024-04-05 20:16] LABS: Base Excess 6.1 mmol/L (-2.0-2.0)
[2024-04-06] VITALS (101 sets, daily range): BP systolic 107–153; BP diastolic 33–63; PULSE 82–111; RESP 11–29; TEMP 98.1–99.7; O2SAT 94–100
[2024-04-06] MEDS ORDERED: VANCOMYCIN 1GM/200ML 200 ML IV SCH
[2024-04-06 05:15] LABS: Basophils # (auto) 0 10 ^3/uL (0-0.2); Basophils % (auto) 0.2 % (0.0-2.0); Eosinophils # (auto) 0 10 ^3/uL (0-0.8); Eosinophils % (auto) 0.2 % (0.0-7.0); Hematocrit 29.3 % (41.0-53.0); Hemoglobin 9.1 g/dL (13.5-17.5); Lymphocytes # (auto) 0.4 10 ^3/uL (0.4-5.4); Lymphocytes % (auto) 4.9 % (10.0-50.0); Mean Corpuscular Hemoglobin 20.3 pg (28.0-32.0); Mean Corpuscular Hgb Conc. 31.1 g/dL (32.0-36.0); Mean Corpuscular Volume 65.3 fL (80.0-100.0); Monocytes # (auto) 0.8 10 ^3/uL (0-1.3); Monocytes % (auto) 10.6 % (0.0-12.0); Neutrophils # (auto) 6.2 10 ^3/uL (1.6-8.6); Neutrophils % (auto) 84.1 % (37.0-80.0); Nucleated Red Blood Cells % 0.1 %; Red Blood Cells 4.49 10^6/uL (4.5-5.90); Red Cell Distribution Width 15.3 % (11.8-14.3); White Blood Cell 7.4 10^3/uL (4.4-10.8)
[2024-04-06 05:23] LABS: Albumin 3.1 g/dL (3.2-4.8); Alkaline Phosphatase 51 U/L (46-116); Anion Gap 5 (5-15); Aspartate Aminotransferase 23 U/L (13-40); BUN/Creatinine Ratio 24.6 (10.0-20.0); Blood Urea Nitrogen 17 mg/dL (9-23); Calcium 8.7 mg/dL (8.5-10.1); Carbon Dioxide 33 mmol/L (20-30); Chloride 104 mmol/L (98-107); Creatine Kinase IFCC 106 U/L (46-171); Glucose 120 mg/dL (74-106); Phosphorus 2.3 mg/dL (2.4-5.1); Potassium 3.3 mmol/L (3.5-5.1); Sodium 142 mmol/L (136-145)
[2024-04-06 05:24] LABS: Bilirubin, Total 0.5 mg/dL (0.2-1.0); Total Protein 5.9 g/dL (5.7-8.2)
[2024-04-06 05:38] LABS: Alanine Aminotransferase < 9 U/L (7-40)
[2024-04-06 07:42] LABS: Magnesium 2.1 mg/dL (1.6-2.6)
[2024-04-06] MEDS: PANTOPRAZOLE 40 MG/10 ML VIAL INJ IV SCH (08:18)
[2024-04-06] MEDS: ASPirin 81 mg TAB PO SCH (08:22)
[2024-04-06] MEDS ORDERED: POTASSIUM CHL 20MEQ/100ML 100 ML IV ONE (08:30)
[2024-04-06] MEDS: POTASSIUM PHOSPHATE 26.4 MEQ in SODIUM CHL 0.9% 100 ML IV ONE (09:44)
[2024-04-06] MEDS: CATHFLO ACTIVASE (ALTEPLASE) 2 MG VIAL IV ONE (11:51)
[2024-04-06] MEDS: ENOXAPARIN SOD 40 MG/0.4 ML SYRINGE SC SCH (12:03)
[2024-04-06 15:56] LABS: INR 1.25 (0.9-1.15); Partial Thromboplastin Time 30.2 SEC (24.5-34.5)
[2024-04-07] VITALS (98 sets, daily range): BP systolic 81–171; BP diastolic 38–66; PULSE 72–108; RESP 12–27; TEMP 98.1–99.3; O2SAT 95–100
[2024-04-07 05:42] LABS: Eosinophils # (auto) 0 10 ^3/uL (0-0.8); Hemoglobin 9.2 g/dL (13.5-17.5); Lymphocytes # (auto) 0.2 10 ^3/uL (0.4-5.4); Lymphocytes % (auto) 2.6 % (10.0-50.0); Monocytes # (auto) 0.9 10 ^3/uL (0-1.3); Red Cell Distribution Width 15.2 % (11.8-14.3)
[2024-04-07 05:44] LABS: Basophils # (auto) 0.1 10 ^3/uL (0-0.2); Basophils % (auto) 0.6 % (0.0-2.0); Eosinophils % (auto) 0.3 % (0.0-7.0); Hematocrit 29.6 % (41.0-53.0); Mean Corpuscular Hemoglobin 19.9 pg (28.0-32.0); Mean Corpuscular Hgb Conc. 30.9 g/dL (32.0-36.0); Mean Corpuscular Volume 64.5 fL (80.0-100.0); Monocytes % (auto) 9.5 % (0.0-12.0); Neutrophils # (auto) 8.2 10 ^3/uL (1.6-8.6); Nucleated Red Blood Cells % 0.2 %; Red Blood Cells 4.59 10^6/uL (4.5-5.90); White Blood Cell 9.4 10^3/uL (4.4-10.8)
[2024-04-07 06:06] LABS: Alkaline Phosphatase 50 U/L (46-116); Anion Gap 7 (5-15); Aspartate Aminotransferase 20 U/L (13-40); BUN/Creatinine Ratio 28.4 (10.0-20.0); Bilirubin, Total 0.5 mg/dL (0.2-1.0); Blood Urea Nitrogen 19 mg/dL (9-23); Calcium 8.4 mg/dL (8.5-10.1); Carbon Dioxide 32 mmol/L (20-30); Chloride 103 mmol/L (98-107); Glucose 117 mg/dL (74-106); Magnesium 2.1 mg/dL (1.6-2.6); Potassium 3.4 mmol/L (3.5-5.1); Sodium 142 mmol/L (136-145); Total Protein 5.9 g/dL (5.7-8.2)
[2024-04-07 06:19] LABS: Alanine Aminotransferase < 9 U/L (7-40)
[2024-04-07 06:44] LABS: INR 1.22 (0.9-1.15); Partial Thromboplastin Time 28.2 SEC (24.5-34.5); Prothrombin Time 12.7 sec (9.3-11.8)
[2024-04-07 08:01] LABS: Base Excess 2.5 mmol/L (-2.0-2.0)
[2024-04-07] MEDS: POTASSIUM CHL 20MEQ/100ML 100 ML IV SCH (08:14)
[2024-04-07 09:08] LABS: Thyroid Stimulating Hormone 0.49 uIU/mL (0.55-4.78)
[2024-04-07] MEDS: POTASSIUM CHLORIDE 40 MEQ, LIDOCAINE 1% (LOCAL ANESTH.) 4 ML in SODIUM CHL 0.9% 250 ML IV ONE (12:00)
[2024-04-07] MEDS: IPRATROPIUM BROM 0.5 MG/2.5ML INH SOL NEB SCH (12:05)
[2024-04-07] MEDS: LEVALBUTEROL HCL 1.25 MG/3 ML NEB NEB SCH (12:05)
[2024-04-07 12:06] LABS: Protein, Body Fluid 4.5 g/dL (.)
[2024-04-07] MEDS ORDERED: MIDAZOLAM HCL 2MG/2ML 2ml VIAL (1mg/ml) ONE (12:44)
[2024-04-07] MEDS ORDERED: fentaNYL CITRATE 100 MCG/2 ML VL ONE (12:44)
[2024-04-07] MEDS ORDERED: HYDROmorphone HCL 2 MG/ML VL/or syr ONE (12:44)
[2024-04-07 13:02] LABS: % Iron Saturation 13.1 % (20-55)
[2024-04-07 13:11] LABS: Folate (Folic Acid) 14.31 ng/mL (>5.38)
[2024-04-07 13:13] LABS: Ferritin 521.2 ng/mL (22-322)
[2024-04-07] MEDS: BUPIVACAINE W/ EPINEPH 0.5% INJ 50ML MDV IJ ONE (13:28)
[2024-04-07] MEDS: POVIDONE IODINE 10 % TOPICAL OINT 30GM TOP ONE (13:35)
[2024-04-07] MEDS: CARBIDOPA W LEVODOPA 25/100mg TABLET PO SCH (14:00)
[2024-04-07] MEDS ORDERED: LABETALOL HCL 5 MG/ML 4ML SYRINGE IV PRN (14:45)
[2024-04-07] MEDS ORDERED: ePHEDrine SULFATE 50 MG/ML AMP IV PRN (14:45)
[2024-04-07] MEDS ORDERED: HYDROmorphone HCL 2 MG/ML VL/or syr IV PRN (14:45)
[2024-04-07] MEDS ORDERED: MIDAZOLAM HCL 2MG/2ML 2ml VIAL (1mg/ml) IV PRN (14:45)
[2024-04-07] MEDS ORDERED: MORPHINE SULFATE 4 MG/ML SYR/VIAL IV PRN (14:45)
[2024-04-07] MEDS: fentaNYL Drip 2500mCg/250mlNS 250 ML IV SCH (22:19)
[2024-04-08] VITALS (98 sets, daily range): BP systolic 98–163; BP diastolic 43–68; PULSE 80–103; RESP 13–24; TEMP 98.5–99.9; O2SAT 95–100
[2024-04-08 03:56] LABS: Basophils # (auto) 0 10 ^3/uL (0-0.2); Eosinophils # (auto) 0 10 ^3/uL (0-0.8); Monocytes # (auto) 0.7 10 ^3/uL (0-1.3); Neutrophils # (auto) 7.3 10 ^3/uL (1.6-8.6); White Blood Cell 8.3 10^3/uL (4.4-10.8)
[2024-04-08 04:02] LABS: Basophils % (auto) 0.1 % (0.0-2.0); Eosinophils % (auto) 0.5 % (0.0-7.0); Lymphocytes # (auto) 0.2 10 ^3/uL (0.4-5.4); Lymphocytes % (auto) 2.7 % (10.0-50.0); Mean Corpuscular Hemoglobin 20.2 pg (28.0-32.0); Mean Corpuscular Hgb Conc. 30.7 g/dL (32.0-36.0); Monocytes % (auto) 8.5 % (0.0-12.0); Neutrophils % (auto) 88.2 % (37.0-80.0); Red Blood Cells 3.94 10^6/uL (4.5-5.90)
[2024-04-08 04:06] LABS: Albumin 2.8 g/dL (3.2-4.8); Alkaline Phosphatase 51 U/L (46-116); Anion Gap 5 (5-15); Aspartate Aminotransferase 25 U/L (13-40); BUN/Creatinine Ratio 30.1 (10.0-20.0); Bilirubin, Total 0.4 mg/dL (0.2-1.0); Blood Urea Nitrogen 22 mg/dL (9-23); Calcium 7.8 mg/dL (8.5-10.1); Carbon Dioxide 30 mmol/L (20-30); Chloride 106 mmol/L (98-107); Glucose 123 mg/dL (74-106); Magnesium 2.1 mg/dL (1.6-2.6); Phosphorus 3.1 mg/dL (2.4-5.1); Potassium 4.1 mmol/L (3.5-5.1); Sodium 141 mmol/L (136-145)
[2024-04-08 04:07] LABS: Total Protein 5.6 g/dL (5.7-8.2)
[2024-04-08 04:10] LABS: Alanine Aminotransferase < 9 U/L (7-40)
[2024-04-08 07:05] LABS: Base Excess 3.3 mmol/L (-2.0-2.0)
[2024-04-08] MEDS ORDERED: CLINIMIX PER PHARMACY 0 ML IV SCH (08:30)
[2024-04-08] MEDS: FUROSEMIDE 40 MG/4 ML VIAL IV SCH (09:37)
[2024-04-08] MEDS: CARBIDOPA W LEVODOPA 25/100mg TABLET PO SCH (16:29)
[2024-04-08 21:06] LABS: QuantiFERON-TB Gold Plus Positive (Negative)
[2024-04-08] MEDS: AMINO ACID INFUSION IN D5W 1,000 ML IV SCH (22:30)
[2024-04-09] VITALS (106 sets, daily range): BP systolic 100–160; BP diastolic 44–74; PULSE 78–113; RESP 10–35; TEMP 97.8–100.3; O2SAT 95–100
[2024-04-09 04:23] LABS: Basophils # (auto) 0 10 ^3/uL (0-0.2); Basophils % (auto) 0.3 % (0.0-2.0); Eosinophils # (auto) 0 10 ^3/uL (0-0.8); Lymphocytes # (auto) 0.3 10 ^3/uL (0.4-5.4); Monocytes # (auto) 0.9 10 ^3/uL (0-1.3); Nucleated Red Blood Cells % 0.1 %
[2024-04-09 04:27] LABS: Eosinophils % (auto) 0.4 % (0.0-7.0); Hematocrit 26.3 % (41.0-53.0); Hemoglobin 8.3 g/dL (13.5-17.5); Lymphocytes % (auto) 3.9 % (10.0-50.0); Mean Corpuscular Hemoglobin 20.1 pg (28.0-32.0); Mean Corpuscular Hgb Conc. 31.5 g/dL (32.0-36.0); Mean Corpuscular Volume 63.9 fL (80.0-100.0); Monocytes % (auto) 12.2 % (0.0-12.0); Neutrophils # (auto) 6.1 10 ^3/uL (1.6-8.6); Neutrophils % (auto) 83.2 % (37.0-80.0); Red Blood Cells 4.13 10^6/uL (4.5-5.90); Red Cell Distribution Width 15.3 % (11.8-14.3); White Blood Cell 7.3 10^3/uL (4.4-10.8)
[2024-04-09 04:36] LABS: Chloride 101 mmol/L (98-107); Potassium 3.6 mmol/L (3.5-5.1); Sodium 141 mmol/L (136-145)
[2024-04-09 04:37] LABS: Anion Gap 8 (5-15); Calcium 8.3 mg/dL (8.5-10.1); Carbon Dioxide 32 mmol/L (20-30)
[2024-04-09 04:42] LABS: BUN/Creatinine Ratio 33.8 (10.0-20.0); Blood Urea Nitrogen 25 mg/dL (9-23); GFR African American 132 mL/min; GFR Non-African American 109 mL/min; Glucose 156 mg/dL (74-106)
[2024-04-09 04:43] LABS: Magnesium 2.2 mg/dL (1.6-2.6)
[2024-04-09 04:44] LABS: Phosphorus 2.1 mg/dL (2.4-5.1)
[2024-04-09 05:14] LABS: Hypochromia Marked; Platelet Estimate Adequate
[2024-04-09] MEDS: Glucerna 1.2 Cal 1Liter BOTTLE GT SCH (11:59)
[2024-04-09] MEDS: POTASSIUM PHOSPHATE 22 MEQ in SODIUM CHL 0.9% 100 ML IV ONE (13:48)
[2024-04-09 14:22] LABS: Base Excess 11.7 mmol/L (-2.0-2.0)
[2024-04-10] VITALS (84 sets, daily range): BP systolic 85–163; BP diastolic 37–115; PULSE 87–120; RESP 7–34; TEMP 97.5–99.9; O2SAT 97–100
[2024-04-10 04:11] LABS: Basophils # (auto) 0 10 ^3/uL (0-0.2); Lymphocytes # (auto) 0.4 10 ^3/uL (0.4-5.4); Neutrophils # (auto) 5.8 10 ^3/uL (1.6-8.6); Nucleated Red Blood Cells % 0.3 %
[2024-04-10 04:14] LABS: Basophils % (auto) 0.3 % (0.0-2.0); Eosinophils # (auto) 0 10 ^3/uL (0-0.8); Eosinophils % (auto) 0.6 % (0.0-7.0); Hematocrit 26.5 % (41.0-53.0); Hemoglobin 8.3 g/dL (13.5-17.5); Lymphocytes % (auto) 5.6 % (10.0-50.0); Mean Corpuscular Hemoglobin 20.1 pg (28.0-32.0); Mean Corpuscular Hgb Conc. 31.4 g/dL (32.0-36.0); Mean Corpuscular Volume 64.1 fL (80.0-100.0); Monocytes % (auto) 13.3 % (0.0-12.0); Neutrophils % (auto) 80.2 % (37.0-80.0); Red Blood Cells 4.14 10^6/uL (4.5-5.90); Red Cell Distribution Width 14.9 % (11.8-14.3); White Blood Cell 7.3 10^3/uL (4.4-10.8)
[2024-04-10 04:17] LABS: Potassium 3.4 mmol/L (3.5-5.1)
[2024-04-10 04:18] LABS: Calcium 8.4 mg/dL (8.7-10.4)
[2024-04-10 04:22] LABS: Albumin 3.1 g/dL (3.2-4.8)
[2024-04-10 04:23] LABS: BUN/Creatinine Ratio 34.8 (10.0-20.0); Magnesium 2.1 mg/dL (1.6-2.6)
[2024-04-10 04:25] LABS: Phosphorus 2.7 mg/dL (2.4-5.1)
[2024-04-10] MEDS: ONDANSETRON HCL 4 MG/2 ML VIAL IV ONE (07:41)
[2024-04-10] MEDS: CARBIDOPA W LEVODOPA 25/100mg TABLET PO SCH (07:42)
[2024-04-10 08:22] LABS: Base Excess 11.4 mmol/L (-2.0-2.0)
[2024-04-10] MEDS: POTASSIUM CHL 20MEQ/100ML 100 ML IV SCH (09:46)
[2024-04-10] MEDS: MORPHINE SULFATE INJ 2 MG/ml SYRG IV PRN (14:41)
[2024-04-10] MEDS ORDERED: MORPHINE SULFATE 4 MG/ML SYR/VIAL IV PRN (17:45)
[2024-04-11] VITALS (84 sets, daily range): BP systolic 80–207; BP diastolic 32–145; PULSE 69–128; RESP 14–35; TEMP 98.1–100.4; O2SAT 90–100
[2024-04-11] MEDS: MIDAZOLAM HCL 2MG/2ML 2ml VIAL (1mg/ml) IV PRN (01:32)
[2024-04-11 04:02] LABS: Basophils # (auto) 0 10 ^3/uL (0-0.2); Eosinophils # (auto) 0 10 ^3/uL (0-0.8); Eosinophils % (auto) 0.6 % (0.0-7.0); Lymphocytes # (auto) 0.3 10 ^3/uL (0.4-5.4)
[2024-04-11 04:06] LABS: Basophils % (auto) 0.5 % (0.0-2.0); Hematocrit 25.9 % (41.0-53.0); Lymphocytes % (auto) 4.8 % (10.0-50.0); Mean Corpuscular Volume 64.4 fL (80.0-100.0); Monocytes # (auto) 0.7 10 ^3/uL (0-1.3); Monocytes % (auto) 12.4 % (0.0-12.0); Neutrophils # (auto) 4.8 10 ^3/uL (1.6-8.6); Neutrophils % (auto) 81.7 % (37.0-80.0); Nucleated Red Blood Cells % 1.1 %; Red Blood Cells 4.02 10^6/uL (4.5-5.90); Red Cell Distribution Width 15.2 % (11.8-14.3); White Blood Cell 5.9 10^3/uL (4.4-10.8)
[2024-04-11 04:18] LABS: Alanine Aminotransferase 13 U/L (7-40); Alkaline Phosphatase 61 U/L (46-116); Anion Gap 7 (5-15); Aspartate Aminotransferase 26 U/L (13-40); BUN/Creatinine Ratio 33.3 (10.0-20.0); Blood Urea Nitrogen 30 mg/dL (9-23); Calcium 8.4 mg/dL (8.7-10.4); Carbon Dioxide 34 mmol/L (20-30); Chloride 99 mmol/L (98-107); Glucose 158 mg/dL (74-106); Magnesium 2.2 mg/dL (1.6-2.6); Potassium 3.6 mmol/L (3.5-5.1); Sodium 140 mmol/L (136-145); Total Protein 6.3 g/dL (5.7-8.2)
[2024-04-11 04:19] LABS: Bilirubin, Total 0.6 mg/dL (0.2-1.0)
[2024-04-11 06:39] LABS: Base Excess 10.6 mmol/L (-2.0-2.0)
[2024-04-11] MEDS: LORazepam 2MG/ML-1ML VIAL IV PRN (09:32)
[2024-04-12] VITALS (91 sets, daily range): BP systolic 76–151; BP diastolic 38–78; PULSE 49–119; RESP 10–31; TEMP 97.5–99.9; O2SAT 86–100
[2024-04-12 03:37] LABS: Basophils # (auto) 0 10 ^3/uL (0-0.2); Basophils % (auto) 0.4 % (0.0-2.0); Eosinophils # (auto) 0.1 10 ^3/uL (0-0.8); Eosinophils % (auto) 1.8 % (0.0-7.0); Hematocrit 25.5 % (41.0-53.0); Hemoglobin 8.1 g/dL (13.5-17.5); Lymphocytes # (auto) 0.3 10 ^3/uL (0.4-5.4); Lymphocytes % (auto) 4.9 % (10.0-50.0); Mean Corpuscular Hemoglobin 20.4 pg (28.0-32.0); Mean Corpuscular Hgb Conc. 31.7 g/dL (32.0-36.0); Mean Corpuscular Volume 64.2 fL (80.0-100.0); Monocytes # (auto) 0.7 10 ^3/uL (0-1.3); Monocytes % (auto) 11.6 % (0.0-12.0); Neutrophils % (auto) 81.3 % (37.0-80.0); Nucleated Red Blood Cells % 1.1 %; Red Blood Cells 3.98 10^6/uL (4.5-5.90); Red Cell Distribution Width 14.8 % (11.8-14.3); White Blood Cell 6.1 10^3/uL (4.4-10.8)
[2024-04-12 03:40] LABS: Chloride 99 mmol/L (98-107); Potassium 3.1 mmol/L (3.5-5.1); Sodium 141 mmol/L (136-145)
[2024-04-12 03:41] LABS: Anion Gap 4 (5-15); Calcium 8.6 mg/dL (8.7-10.4); Carbon Dioxide 38 mmol/L (20-30)
[2024-04-12 03:46] LABS: Blood Urea Nitrogen 37 mg/dL (9-23); Glucose 120 mg/dL (74-106)
[2024-04-12] MEDS: FLUCONAZOLE 200MG/100ML 100 ML IV SCH (08:24)
[2024-04-12] MEDS: POTASSIUM CHL 20MEQ/100ML 100 ML IV SCH (08:25)
[2024-04-12] MEDS: FUROSEMIDE 20 MG/2 ML VIAL IV SCH (10:58)
[2024-04-12] MEDS: SODIUM CHLORIDE 0.9% 250 ML IV ONE (11:30)
[2024-04-12] MEDS: SODIUM CHLORIDE 0.9% 1,000 ML IV SCH (13:49)
[2024-04-12 15:12] LABS: Potassium 3.7 mmol/L (3.5-5.1)
[2024-04-12 15:19] LABS: Magnesium 2.1 mg/dL (1.6-2.6)
[2024-04-13] VITALS (105 sets, daily range): BP systolic 87–166; BP diastolic 53–84; PULSE 76–145; RESP 9–39; TEMP 99–99.9; O2SAT 92–100
[2024-04-13 04:16] LABS: Basophils # (auto) 0 10 ^3/uL (0-0.2); Basophils % (auto) 0.4 % (0.0-2.0); Hemoglobin 7.8 g/dL (13.5-17.5); Nucleated Red Blood Cells % 0.5 %; Red Blood Cells 3.85 10^6/uL (4.5-5.90)
[2024-04-13 04:18] LABS: Eosinophils # (auto) 0 10 ^3/uL (0-0.8); Eosinophils % (auto) 0.9 % (0.0-7.0); Lymphocytes # (auto) 0.3 10 ^3/uL (0.4-5.4); Lymphocytes % (auto) 4.7 % (10.0-50.0); Mean Corpuscular Hemoglobin 20.2 pg (28.0-32.0); Mean Corpuscular Hgb Conc. 31.1 g/dL (32.0-36.0); Mean Corpuscular Volume 64.9 fL (80.0-100.0); Monocytes # (auto) 0.6 10 ^3/uL (0-1.3); Monocytes % (auto) 11.7 % (0.0-12.0); Neutrophils # (auto) 4.5 10 ^3/uL (1.6-8.6); Neutrophils % (auto) 82.3 % (37.0-80.0); Red Cell Distribution Width 14.8 % (11.8-14.3); White Blood Cell 5.5 10^3/uL (4.4-10.8)
[2024-04-13 04:21] LABS: Alanine Aminotransferase 13 U/L (7-40); Alkaline Phosphatase 63 U/L (46-116); Anion Gap 5 (5-15); Aspartate Aminotransferase 40 U/L (13-40); BUN/Creatinine Ratio 37.8 (10.0-20.0); Blood Urea Nitrogen 31 mg/dL (9-23); Calcium 8.3 mg/dL (8.7-10.4); Carbon Dioxide 34 mmol/L (20-30); Chloride 103 mmol/L (98-107); Glucose 112 mg/dL (74-106); Magnesium 2.2 mg/dL (1.6-2.6); Potassium 3.5 mmol/L (3.5-5.1); Sodium 142 mmol/L (136-145)
[2024-04-13 04:22] LABS: Bilirubin, Total 0.7 mg/dL (0.2-1.0); Phosphorus 2.6 mg/dL (2.4-5.1); Total Protein 6.2 g/dL (5.7-8.2)
[2024-04-13] MEDS: FLUCONAZOLE 200MG/100ML 100 ML IV SCH (10:13)
[2024-04-13] MEDS: CARBIDOPA W LEVODOPA 25/100mg TABLET PO ONE (10:21)
[2024-04-13] MEDS: POTASSIUM CHLORIDE 20 MEQ, LIDOCAINE 1% (LOCAL ANESTH.) 2 ML in SODIUM CHL 0.9% 100 ML IV ONE (10:23)
[2024-04-13] MEDS: POTASSIUM CHL 20MEQ/100ML 0 ML IV ONE (10:24)
[2024-04-13] MEDS ORDERED: ACETAMINOPHEN 325 MG TAB PO PRN (12:30)
[2024-04-13] MEDS: CARBIDOPA W LEVODOPA 25/100mg TABLET PO SCH (14:14)
[2024-04-14] VITALS (47 sets, daily range): BP systolic 108–163; BP diastolic 58–91; PULSE 93–123; RESP 12–29; TEMP 98.6–99.7; O2SAT 86–100
[2024-04-14 04:09] LABS: Basophils # (auto) 0 10 ^3/uL (0-0.2); Lymphocytes # (auto) 0.4 10 ^3/uL (0.4-5.4); Monocytes # (auto) 0.7 10 ^3/uL (0-1.3); Neutrophils # (auto) 6.9 10 ^3/uL (1.6-8.6)
[2024-04-14 04:17] LABS: Basophils % (auto) 0.3 % (0.0-2.0); Eosinophils # (auto) 0 10 ^3/uL (0-0.8); Eosinophils % (auto) 0.5 % (0.0-7.0); Hematocrit 27.5 % (41.0-53.0); Hemoglobin 8.5 g/dL (13.5-17.5); Lymphocytes % (auto) 4.9 % (10.0-50.0); Mean Corpuscular Hgb Conc. 30.8 g/dL (32.0-36.0); Mean Corpuscular Volume 64.8 fL (80.0-100.0); Neutrophils % (auto) 85.3 % (37.0-80.0); Nucleated Red Blood Cells % 0.6 %; Red Blood Cells 4.25 10^6/uL (4.5-5.90); White Blood Cell 8.1 10^3/uL (4.4-10.8)
[2024-04-14 04:32] LABS: Alanine Aminotransferase 16 U/L (7-40); Albumin 3.4 g/dL (3.2-4.8); Alkaline Phosphatase 72 U/L (46-116); Anion Gap 9 (5-15); Aspartate Aminotransferase 45 U/L (13-40); BUN/Creatinine Ratio 27.8 (10.0-20.0); Bilirubin, Total 0.9 mg/dL (0.2-1.0); Blood Urea Nitrogen 25 mg/dL (9-23); Calcium 8.9 mg/dL (8.5-10.1); Carbon Dioxide 31 mmol/L (20-30); Chloride 105 mmol/L (98-107); Glucose 145 mg/dL (74-106); Magnesium 2.1 mg/dL (1.6-2.6); Phosphorus 2.2 mg/dL (2.4-5.1); Potassium 3.5 mmol/L (3.5-5.1); Sodium 145 mmol/L (136-145); Total Protein 6.8 g/dL (5.7-8.2)
[2024-04-14 04:38] LABS: CRP High Sensitivity 7.93 mg/dL (<1.0)
[2024-04-14] MEDS: POTASSIUM PHOSPHATE 22 MEQ in SODIUM CHL 0.9% 100 ML IV ONE (08:47)
[2024-04-14] MEDS: CARBIDOPA W LEVODOPA 25/100mg TABLET PO SCH (10:15)
[2024-04-15] VITALS (38 sets, daily range): BP systolic 106–157; BP diastolic 59–89; PULSE 84–116; RESP 10–35; TEMP 97.9–99; O2SAT 92–100
[2024-04-15 05:11] LABS: Basophils # (auto) 0 10 ^3/uL (0-0.2); Eosinophils # (auto) 0.1 10 ^3/uL (0-0.8); Hemoglobin 9.4 g/dL (13.5-17.5); Lymphocytes # (auto) 0.3 10 ^3/uL (0.4-5.4)
[2024-04-15 05:13] LABS: Basophils % (auto) 0.4 % (0.0-2.0); Eosinophils % (auto) 1.5 % (0.0-7.0); Hematocrit 30.5 % (41.0-53.0); Lymphocytes % (auto) 4.6 % (10.0-50.0); Mean Corpuscular Hgb Conc. 30.7 g/dL (32.0-36.0); Mean Corpuscular Volume 65.2 fL (80.0-100.0); Monocytes # (auto) 0.5 10 ^3/uL (0-1.3); Monocytes % (auto) 8.3 % (0.0-12.0); Neutrophils # (auto) 5.4 10 ^3/uL (1.6-8.6); Neutrophils % (auto) 85.2 % (37.0-80.0); Red Blood Cells 4.67 10^6/uL (4.5-5.90); Red Cell Distribution Width 15.3 % (11.8-14.3); White Blood Cell 6.4 10^3/uL (4.4-10.8)
[2024-04-15 05:27] LABS: Alanine Aminotransferase 22 U/L (7-40); Albumin 3.3 g/dL (3.2-4.8); Alkaline Phosphatase 76 U/L (46-116); Anion Gap 8 (5-15); Aspartate Aminotransferase 36 U/L (13-40); Bilirubin, Total 0.9 mg/dL (0.2-1.0); Blood Urea Nitrogen 24 mg/dL (9-23); Calcium 8.9 mg/dL (8.7-10.4); Carbon Dioxide 32 mmol/L (20-30); Chloride 105 mmol/L (98-107); Glucose 138 mg/dL (74-106); Magnesium 2.3 mg/dL (1.6-2.6); Potassium 3.4 mmol/L (3.5-5.1); Sodium 145 mmol/L (136-145); Total Protein 7.3 g/dL (5.7-8.2)
[2024-04-15 06:07] LABS: Anisocytosis Slight; Hypochromia Marked; Platelet Estimate Adequate; Target Cell FEW
[2024-04-15] MEDS: POTASSIUM CHLORIDE 40 MEQ, LIDOCAINE 1% (LOCAL ANESTH.) 4 ML in SODIUM CHL 0.9% 250 ML IV ONE (08:44)
[2024-04-15] MEDS: ENOXAPARIN SOD 40 MG/0.4 ML SYRINGE SC ONE (09:09)
[2024-04-15] MEDS: MICAFUNGIN SODIUM 100 MG in SODIUM CHL 0.9% 100 ML IV ONE (13:33)
[2024-04-16] VITALS (35 sets, daily range): BP systolic 104–161; BP diastolic 60–90; PULSE 76–117; RESP 13–29; TEMP 97.5–99.1; O2SAT 95–100
[2024-04-16 05:44] LABS: Basophils # (auto) 0 10 ^3/uL (0-0.2); Basophils % (auto) 0.6 % (0.0-2.0); Eosinophils # (auto) 0 10 ^3/uL (0-0.8); Eosinophils % (auto) 0.6 % (0.0-7.0); Hemoglobin 9.6 g/dL (13.5-17.5); Lymphocytes # (auto) 0.4 10 ^3/uL (0.4-5.4); Lymphocytes % (auto) 6.3 % (10.0-50.0); Mean Corpuscular Hemoglobin 20.2 pg (28.0-32.0); Mean Corpuscular Hgb Conc. 30.9 g/dL (32.0-36.0); Mean Corpuscular Volume 65.3 fL (80.0-100.0); Monocytes # (auto) 0.6 10 ^3/uL (0-1.3); Monocytes % (auto) 9.3 % (0.0-12.0); Neutrophils % (auto) 83.2 % (37.0-80.0); Nucleated Red Blood Cells % 0.5 %; Red Blood Cells 4.75 10^6/uL (4.5-5.90); Red Cell Distribution Width 15.7 % (11.8-14.3)
[2024-04-16 05:54] LABS: Chloride 107 mmol/L (98-107); Potassium 3.6 mmol/L (3.5-5.1); Sodium 149 mmol/L (136-145)
[2024-04-16 05:55] LABS: Anion Gap 10 (5-15); Carbon Dioxide 32 mmol/L (20-30)
[2024-04-16 05:56] LABS: Calcium 9.4 mg/dL (8.5-10.1)
[2024-04-16 06:00] LABS: Glucose 136 mg/dL (74-106)
[2024-04-16 06:01] LABS: BUN/Creatinine Ratio 29.5 (10.0-20.0); Blood Urea Nitrogen 28 mg/dL (9-23)
[2024-04-16] MEDS: MICAFUNGIN SODIUM 100 MG in SODIUM CHL 0.9% 100 ML IV SCH (09:49)
[2024-04-16] MEDS: ISONIAZID 300 MG TAB PO SCH (10:43)
[2024-04-16] MEDS: ETHAMBUTOL HCL 400 MG TAB PO SCH (10:44)
[2024-04-16] MEDS: PYRAZINAMIDE 500 MG TAB PO SCH (10:44)
[2024-04-16] MEDS: rifAMPin IV 600 MG in SODIUM CHL 0.9% 100 ML IV SCH (13:23)
[2024-04-17] VITALS (32 sets, daily range): BP systolic 103–156; BP diastolic 60–90; PULSE 76–113; RESP 12–31; TEMP 97.4–98.8; O2SAT 94–100
[2024-04-17 10:25] LABS: Chloride 109 mmol/L (98-107); Potassium 3.4 mmol/L (3.5-5.1); Sodium 149 mmol/L (136-145)
[2024-04-17 10:26] LABS: Calcium 9.4 mg/dL (8.5-10.1); Carbon Dioxide 35 mmol/L (20-30)
[2024-04-17 10:27] LABS: Basophils # (auto) 0 10 ^3/uL (0-0.2); Basophils % (auto) 0.4 % (0.0-2.0); Eosinophils # (auto) 0 10 ^3/uL (0-0.8); Hemoglobin 9.2 g/dL (13.5-17.5); Lymphocytes # (auto) 0.3 10 ^3/uL (0.4-5.4); Monocytes # (auto) 0.5 10 ^3/uL (0-1.3); Neutrophils # (auto) 5.1 10 ^3/uL (1.6-8.6); Nucleated Red Blood Cells % 0.7 %
[2024-04-17 10:31] LABS: BUN/Creatinine Ratio 30.1 (10.0-20.0); Blood Urea Nitrogen 31 mg/dL (9-23); Eosinophils % (auto) 0.7 % (0.0-7.0); Glucose 143 mg/dL (74-106); Hematocrit 29.5 % (41.0-53.0); Lymphocytes % (auto) 5.5 % (10.0-50.0); Mean Corpuscular Hemoglobin 20.2 pg (28.0-32.0); Mean Corpuscular Hgb Conc. 31.2 g/dL (32.0-36.0); Mean Corpuscular Volume 64.6 fL (80.0-100.0); Monocytes % (auto) 8.5 % (0.0-12.0); Neutrophils % (auto) 84.9 % (37.0-80.0); Red Blood Cells 4.57 10^6/uL (4.5-5.90); Red Cell Distribution Width 15.2 % (11.8-14.3)
[2024-04-17 11:13] LABS: Anion Gap 5 (5-15)
[2024-04-17] MEDS: POTASSIUM EFFERVESENT TAB 25 MEQ PO ONE (12:24)
[2024-04-18] VITALS (35 sets, daily range): BP systolic 88–154; BP diastolic 53–85; PULSE 85–110; RESP 16–46; TEMP 97.9–98.9; O2SAT 93–100
[2024-04-18 06:20] LABS: Basophils # (auto) 0 10 ^3/uL (0-0.2); Eosinophils # (auto) 0.1 10 ^3/uL (0-0.8); Eosinophils % (auto) 0.9 % (0.0-7.0); Monocytes # (auto) 0.5 10 ^3/uL (0-1.3); Neutrophils # (auto) 6.4 10 ^3/uL (1.6-8.6); White Blood Cell 7.5 10^3/uL (4.4-10.8)
[2024-04-18 06:27] LABS: Basophils % (auto) 0.5 % (0.0-2.0); Hematocrit 31.8 % (41.0-53.0); Hemoglobin 9.9 g/dL (13.5-17.5); Lymphocytes # (auto) 0.4 10 ^3/uL (0.4-5.4); Mean Corpuscular Hemoglobin 20.4 pg (28.0-32.0); Mean Corpuscular Hgb Conc. 31.2 g/dL (32.0-36.0); Mean Corpuscular Volume 65.5 fL (80.0-100.0); Monocytes % (auto) 6.6 % (0.0-12.0); Nucleated Red Blood Cells % 1.4 %; Red Blood Cells 4.86 10^6/uL (4.5-5.90); Red Cell Distribution Width 15.6 % (11.8-14.3)
[2024-04-18 06:32] LABS: Calcium 9.6 mg/dL (8.7-10.4); Chloride 105 mmol/L (98-107); Potassium 3.5 mmol/L (3.5-5.1); Sodium 146 mmol/L (136-145)
[2024-04-18 06:33] LABS: Anion Gap 10 (5-15); Carbon Dioxide 31 mmol/L (20-30)
[2024-04-18 06:38] LABS: BUN/Creatinine Ratio 29.5 (10.0-20.0); Blood Urea Nitrogen 31 mg/dL (9-23); Glucose 130 mg/dL (74-106)
[2024-04-18 06:39] LABS: Magnesium 2.3 mg/dL (1.6-2.6)
[2024-04-18] MEDS: ENOXAPARIN SOD 40 MG/0.4 ML SYRINGE SC SCH (09:50)
[2024-04-18] MEDS: PYRIDOXINE HCL 50 MG TAB PO SCH (12:57)
[2024-04-18] MEDS: POTASSIUM CHLORIDE 40 MEQ, LIDOCAINE 1% (LOCAL ANESTH.) 4 ML in SODIUM CHL 0.9% 250 ML IV ONE (13:30)
[2024-04-18] MEDS: LEVALBUTEROL HCL 1.25 MG/3 ML NEB NEB SCH (18:25)
[2024-04-19] VITALS (33 sets, daily range): BP systolic 96–141; BP diastolic 56–84; PULSE 82–118; RESP 13–30; TEMP 98–99.1; O2SAT 94–100
[2024-04-19 05:12] LABS: Basophils # (auto) 0 10 ^3/uL (0-0.2); Basophils % (auto) 0.4 % (0.0-2.0); Eosinophils # (auto) 0.1 10 ^3/uL (0-0.8); Eosinophils % (auto) 1.1 % (0.0-7.0); Hemoglobin 9.7 g/dL (13.5-17.5); Lymphocytes # (auto) 0.4 10 ^3/uL (0.4-5.4); Monocytes # (auto) 0.5 10 ^3/uL (0-1.3); Neutrophils % (auto) 85.3 % (37.0-80.0)
[2024-04-19 05:17] LABS: Hematocrit 31.5 % (41.0-53.0); Lymphocytes % (auto) 6.4 % (10.0-50.0); Mean Corpuscular Hemoglobin 20.4 pg (28.0-32.0); Mean Corpuscular Hgb Conc. 30.9 g/dL (32.0-36.0); Monocytes % (auto) 6.8 % (0.0-12.0); Neutrophils # (auto) 5.8 10 ^3/uL (1.6-8.6); Nucleated Red Blood Cells % 1.2 %; Red Blood Cells 4.78 10^6/uL (4.5-5.90); Red Cell Distribution Width 15.3 % (11.8-14.3); White Blood Cell 6.7 10^3/uL (4.4-10.8)
[2024-04-19 05:28] LABS: Alkaline Phosphatase 98 U/L (46-116); Anion Gap 8 (5-15); Aspartate Aminotransferase 35 U/L (13-40); BUN/Creatinine Ratio 27.8 (10.0-20.0); Blood Urea Nitrogen 27 mg/dL (9-23); Calcium 9.4 mg/dL (8.7-10.4); Carbon Dioxide 29 mmol/L (20-30); Chloride 108 mmol/L (98-107); Glucose 131 mg/dL (74-106); Potassium 3.7 mmol/L (3.5-5.1); Sodium 145 mmol/L (136-145)
[2024-04-19 05:29] LABS: Albumin 3.2 g/dL (3.2-4.8); Bilirubin, Total 1.9 mg/dL (0.2-1.0); Total Protein 7.3 g/dL (5.7-8.2)
[2024-04-19 05:30] LABS: Alanine Aminotransferase < 9 U/L (7-40)
[2024-04-20] VITALS (28 sets, daily range): BP systolic 90–144; BP diastolic 56–87; PULSE 86–112; RESP 12–26; TEMP 97.9–98.7; O2SAT 93–100
[2024-04-20 05:41] LABS: Basophils # (auto) 0 10 ^3/uL (0-0.2); Basophils % (auto) 0.3 % (0.0-2.0); Eosinophils # (auto) 0.1 10 ^3/uL (0-0.8); Hematocrit 33.8 % (41.0-53.0); Hemoglobin 10.2 g/dL (13.5-17.5); Lymphocytes # (auto) 0.5 10 ^3/uL (0.4-5.4); Lymphocytes % (auto) 6.7 % (10.0-50.0); Mean Corpuscular Hemoglobin 19.8 pg (28.0-32.0); Mean Corpuscular Hgb Conc. 30.3 g/dL (32.0-36.0); Mean Corpuscular Volume 65.2 fL (80.0-100.0); Monocytes # (auto) 0.4 10 ^3/uL (0-1.3); Monocytes % (auto) 4.8 % (0.0-12.0); Neutrophils # (auto) 6.6 10 ^3/uL (1.6-8.6); Neutrophils % (auto) 87.2 % (37.0-80.0); Nucleated Red Blood Cells % 1.1 %; Red Blood Cells 5.18 10^6/uL (4.5-5.90); Red Cell Distribution Width 15.9 % (11.8-14.3); White Blood Cell 7.5 10^3/uL (4.4-10.8)
[2024-04-20 05:57] LABS: Alanine Aminotransferase 10 U/L (7-40); Albumin 3.5 g/dL (3.2-4.8); Alkaline Phosphatase 110 U/L (46-116); Anion Gap 9 (5-15); Aspartate Aminotransferase 52 U/L (13-40); BUN/Creatinine Ratio 31.6 (10.0-20.0); Bilirubin, Total 2.6 mg/dL (0.2-1.0); Blood Urea Nitrogen 30 mg/dL (9-23); Calcium 9.6 mg/dL (8.7-10.4); Carbon Dioxide 29 mmol/L (20-30); Chloride 106 mmol/L (98-107); Glucose 141 mg/dL (74-106); Potassium 3.7 mmol/L (3.5-5.1); Sodium 144 mmol/L (136-145); Total Protein 8.1 g/dL (5.7-8.2)
[2024-04-20] MEDS: CARBIDOPA W LEVODOPA 25/100mg TABLET PO SCH (22:00)
[2024-04-21] VITALS (23 sets, daily range): BP systolic 114–160; BP diastolic 54–85; PULSE 87–121; RESP 16–28; TEMP 97.5–98.7; O2SAT 90–98
[2024-04-21 05:43] LABS: Basophils # (auto) 0 10 ^3/uL (0-0.2); Mean Corpuscular Volume 65.1 fL (80.0-100.0); Monocytes # (auto) 0.4 10 ^3/uL (0-1.3)
[2024-04-21 05:45] LABS: Basophils % (auto) 0.1 % (0.0-2.0); Eosinophils # (auto) 0 10 ^3/uL (0-0.8); Eosinophils % (auto) 0.5 % (0.0-7.0); Hematocrit 33.9 % (41.0-53.0); Hemoglobin 10.7 g/dL (13.5-17.5); Lymphocytes # (auto) 0.5 10 ^3/uL (0.4-5.4); Lymphocytes % (auto) 7.3 % (10.0-50.0); Mean Corpuscular Hemoglobin 20.6 pg (28.0-32.0); Mean Corpuscular Hgb Conc. 31.6 g/dL (32.0-36.0); Monocytes % (auto) 6.1 % (0.0-12.0); Neutrophils # (auto) 6.3 10 ^3/uL (1.6-8.6); Nucleated Red Blood Cells % 2.7 %; Red Blood Cells 5.21 10^6/uL (4.5-5.90); Red Cell Distribution Width 16.1 % (11.8-14.3); White Blood Cell 7.4 10^3/uL (4.4-10.8)
[2024-04-21 05:49] LABS: Alanine Aminotransferase 28 U/L (7-40); Alkaline Phosphatase 125 U/L (46-116)
[2024-04-21 05:50] LABS: Albumin 3.3 g/dL (3.2-4.8); Anion Gap 10 (5-15); Aspartate Aminotransferase 94 U/L (13-40); Bilirubin, Total 2.8 mg/dL (0.2-1.0); Blood Urea Nitrogen 32 mg/dL (9-23); Calcium 9.5 mg/dL (8.7-10.4); Carbon Dioxide 29 mmol/L (20-30); Chloride 102 mmol/L (98-107); Glucose 147 mg/dL (74-106); Magnesium 2.1 mg/dL (1.6-2.6); Phosphorus 3.6 mg/dL (2.4-5.1); Potassium 3.5 mmol/L (3.5-5.1); Sodium 141 mmol/L (136-145)
[2024-04-21 05:51] LABS: Total Protein 7.8 g/dL (5.7-8.2)
[2024-04-21] MEDS: LACTULOSE 20Gm/30ML SOLN PO PRN (10:08)
[2024-04-22] VITALS (31 sets, daily range): BP systolic 81–144; BP diastolic 43–87; PULSE 87–110; RESP 10–28; TEMP 96.6–98.8; O2SAT 92–100
[2024-04-22 05:29] LABS: Alanine Aminotransferase 52 U/L (7-40); Albumin 3.2 g/dL (3.2-4.8); Alkaline Phosphatase 114 U/L (46-116); Anion Gap 11 (5-15); Aspartate Aminotransferase 180 U/L (13-40); BUN/Creatinine Ratio 28.7 (10.0-20.0); Blood Urea Nitrogen 27 mg/dL (9-23); Calcium 9.4 mg/dL (8.7-10.4); Carbon Dioxide 26 mmol/L (20-30); Chloride 101 mmol/L (98-107); Glucose 127 mg/dL (74-106); Magnesium 2.2 mg/dL (1.6-2.6); Potassium 3.7 mmol/L (3.5-5.1); Sodium 138 mmol/L (136-145)
[2024-04-22 05:30] LABS: Bilirubin, Total 3.1 mg/dL (0.2-1.0); Phosphorus 3.4 mg/dL (2.4-5.1); Total Protein 7.6 g/dL (5.7-8.2)
[2024-04-22 05:35] LABS: Hematocrit 36.9 % (41.0-53.0); Hemoglobin 11.1 g/dL (13.5-17.5); Mean Corpuscular Hemoglobin 20.3 pg (28.0-32.0); Mean Corpuscular Volume 67.6 fL (80.0-100.0); Red Blood Cells 5.46 10^6/uL (4.5-5.90); Red Cell Distribution Width 16.1 % (11.8-14.3); White Blood Cell 7.6 10^3/uL (4.4-10.8)
[2024-04-22 05:38] LABS: Basophils % (manual) 0 (0.0-2.0); Blast Cells 0; Eosinophils % (manual) 0 (0-7); Metamyelocytes % 0; Myelocytes % 0; Promyelocytes % 0; Reactive Lymphocytes 0
[2024-04-22 06:09] LABS: Band Neutrophils % (manual) 1; Lymphocytes % (manual) 4 (10.0-50.0); Monocytes % (manual) 4 (0-12)
[2024-04-22 06:10] LABS: Hypochromia Marked
[2024-04-22 06:11] LABS: Platelet Estimate Adequate
[2024-04-22] MEDS ORDERED: RIFA300C58 PO (07:30)
[2024-04-22] MEDS ORDERED: LACT10SO3 PO (07:30)
[2024-04-22] MEDS ORDERED: ACET-1882 PO (07:30)
[2024-04-22] MEDS ORDERED: ASPI-325 PO (07:30)
[2024-04-22] MEDS ORDERED: ETHA400T20 PO (07:30)
[2024-04-22] MEDS ORDERED: DOCU240C23 PO (07:30)
[2024-04-22] MEDS ORDERED: TICA90TA PO (07:30)
[2024-04-22] MEDS ORDERED: PYRI50TA9 PO (07:30)
[2024-04-22] MEDS ORDERED: PANT40T PO (07:30)
[2024-04-22] MEDS ORDERED: ISON300T68 PO (07:30)
[2024-04-22] MEDS: CARBIDOPA W LEVODOPA 25/100mg TABLET PO SCH (21:15)
[2024-04-23] VITALS (70 sets, daily range): BP systolic 60–136; BP diastolic 33–67; PULSE 81–144; RESP 13–32; TEMP 96.5–98.3; O2SAT 93–100
[2024-04-23 05:54] LABS: Basophils # (auto) 0 10 ^3/uL (0-0.2); Eosinophils # (auto) 0 10 ^3/uL (0-0.8); Lymphocytes # (auto) 0.3 10 ^3/uL (0.4-5.4); Lymphocytes % (auto) 3.8 % (10.0-50.0); Monocytes # (auto) 0.4 10 ^3/uL (0-1.3); Monocytes % (auto) 5.3 % (0.0-12.0)
[2024-04-23 05:58] LABS: Basophils % (auto) 0.4 % (0.0-2.0); Eosinophils % (auto) 0.1 % (0.0-7.0); Hematocrit 35.6 % (41.0-53.0); Mean Corpuscular Hemoglobin 20.9 pg (28.0-32.0); Mean Corpuscular Hgb Conc. 30.9 g/dL (32.0-36.0); Mean Corpuscular Volume 67.5 fL (80.0-100.0); Neutrophils # (auto) 7.6 10 ^3/uL (1.6-8.6); Neutrophils % (auto) 90.4 % (37.0-80.0); Red Blood Cells 5.28 10^6/uL (4.5-5.90); Red Cell Distribution Width 16.4 % (11.8-14.3); White Blood Cell 8.4 10^3/uL (4.4-10.8)
[2024-04-23 06:04] LABS: Nucleated Red Blood Cells % 5.2 %
[2024-04-23 06:31] LABS: Chloride 100 mmol/L (98-107); Potassium 4.8 mmol/L (3.5-5.1); Sodium 137 mmol/L (136-145)
[2024-04-23 06:33] LABS: Anion Gap 11 (5-15); Carbon Dioxide 26 mmol/L (20-30)
[2024-04-23 06:34] LABS: Calcium 8.9 mg/dL (8.7-10.4)
[2024-04-23 06:38] LABS: Glucose 81 mg/dL (74-106)
[2024-04-23 06:39] LABS: Alkaline Phosphatase 117 U/L (46-116); BUN/Creatinine Ratio 34.8 (10.0-20.0); Blood Urea Nitrogen 46 mg/dL (9-23); Magnesium 2.1 mg/dL (1.6-2.6)
[2024-04-23 06:40] LABS: Alanine Aminotransferase 84 U/L (7-40); Albumin 2.9 g/dL (3.2-4.8); Aspartate Aminotransferase 334 U/L (13-40)
[2024-04-23 06:41] LABS: Phosphorus 3.6 mg/dL (2.4-5.1); Total Protein 6.8 g/dL (5.7-8.2)
[2024-04-23] MEDS: NOREPINEPHRINE 8 MG/250ML KIT 250 ML IV ONE (11:36)
[2024-04-23] MEDS: DEXTROSE (50%) 50ML SYRG IV PRN (11:51)
[2024-04-23] MEDS: SODIUM CHLORIDE 0.9% 1,000 ML IV SCH (12:00)
[2024-04-23 12:19] LABS: Base Excess -3.5 mmol/L (-2.0-2.0)
[2024-04-23] MEDS: NOREPINEPHRINE 8 MG/250ML KIT 250 ML IV SCH (13:30)
[2024-04-24] VITALS (40 sets, daily range): BP systolic 78–143; BP diastolic 47–74; PULSE 73–104; RESP 16–26; TEMP 97.1–98.4; O2SAT 91–100
[2024-04-24 05:46] LABS: Basophils # (auto) 0 10 ^3/uL (0-0.2); Eosinophils # (auto) 0 10 ^3/uL (0-0.8); Eosinophils % (auto) 0.1 % (0.0-7.0); Hemoglobin 9.7 g/dL (13.5-17.5); Mean Corpuscular Volume 65.1 fL (80.0-100.0); Monocytes # (auto) 0.5 10 ^3/uL (0-1.3)
[2024-04-24 05:49] LABS: Basophils % (auto) 0.3 % (0.0-2.0); Hematocrit 30.9 % (41.0-53.0); Lymphocytes # (auto) 0.3 10 ^3/uL (0.4-5.4); Lymphocytes % (auto) 3.2 % (10.0-50.0); Mean Corpuscular Hemoglobin 20.4 pg (28.0-32.0); Mean Corpuscular Hgb Conc. 31.3 g/dL (32.0-36.0); Monocytes % (auto) 5.8 % (0.0-12.0); Neutrophils # (auto) 7.3 10 ^3/uL (1.6-8.6); Neutrophils % (auto) 90.6 % (37.0-80.0); Nucleated Red Blood Cells % 2.2 %; Red Blood Cells 4.75 10^6/uL (4.5-5.90); Red Cell Distribution Width 15.9 % (11.8-14.3); White Blood Cell 8.1 10^3/uL (4.4-10.8)
[2024-04-24 06:04] LABS: Alanine Aminotransferase 101 U/L (7-40); Albumin 2.4 g/dL (3.2-4.8); Alkaline Phosphatase 117 U/L (46-116); Anion Gap 4 (5-15); Aspartate Aminotransferase 787 U/L (13-40); Calcium 8.2 mg/dL (8.7-10.4); Carbon Dioxide 31 mmol/L (20-30); Chloride 103 mmol/L (98-107); Glucose 147 mg/dL (74-106); Magnesium 2.1 mg/dL (1.6-2.6); Sodium 138 mmol/L (136-145)
[2024-04-24 06:05] LABS: Bilirubin, Total 5.5 mg/dL (0.2-1.0); Phosphorus 2.7 mg/dL (2.4-5.1); Total Protein 5.9 g/dL (5.7-8.2)
[2024-04-24 06:09] LABS: BUN/Creatinine Ratio 36.2 (10.0-20.0); Blood Urea Nitrogen 38 mg/dL (9-23)
[2024-04-24] MEDS ORDERED: CLINIMIX PER PHARMACY 0 ML IV SCH (10:45)
[2024-04-24] MEDS: Ensure HIGH Protein Chocolate 8oz Bottle PO SCH (12:10)
[2024-04-24] MEDS: AMINO ACID INFUSION IN D5W 1,000 ML IV SCH (19:42)
[2024-04-25] VITALS (31 sets, daily range): BP systolic 112–162; BP diastolic 57–80; PULSE 77–92; RESP 14–26; TEMP 97.9–99.2; O2SAT 93–100
[2024-04-25 06:02] LABS: Hematocrit 31.1 % (41.0-53.0); White Blood Cell 6.6 10^3/uL (4.4-10.8)
[2024-04-25 06:06] LABS: Hemoglobin 9.7 g/dL (13.5-17.5); Mean Corpuscular Hemoglobin 20.4 pg (28.0-32.0); Mean Corpuscular Hgb Conc. 31.1 g/dL (32.0-36.0); Mean Corpuscular Volume 65.6 fL (80.0-100.0); Red Blood Cells 4.74 10^6/uL (4.5-5.90)
[2024-04-25 06:21] LABS: Band Neutrophils % (manual) 0; Basophils % (manual) 0 (0.0-2.0); Blast Cells 0; Eosinophils % (manual) 0 (0-7); Metamyelocytes % 0; Myelocytes % 0; Promyelocytes % 0; Reactive Lymphocytes 0
[2024-04-25 06:30] LABS: Alanine Aminotransferase 149 U/L (7-40); Albumin 2.5 g/dL (3.2-4.8); Alkaline Phosphatase 148 U/L (46-116); Anion Gap 4 (5-15); Bilirubin, Total 4.6 mg/dL (0.2-1.0); Carbon Dioxide 30 mmol/L (20-30); Chloride 103 mmol/L (98-107); Glucose 162 mg/dL (74-106); Potassium 3.7 mmol/L (3.5-5.1); Sodium 137 mmol/L (136-145); Total Protein 5.8 g/dL (5.7-8.2)
[2024-04-25 06:31] LABS: Phosphorus 1.8 mg/dL (2.4-5.1)
[2024-04-25 06:37] LABS: BUN/Creatinine Ratio 46.8 (10.0-20.0); Blood Urea Nitrogen 29 mg/dL (9-23)
[2024-04-25 06:40] LABS: Aspartate Aminotransferase 1083 U/L (13-40)
[2024-04-25 07:42] LABS: Lymphocytes % (manual) 3 (10.0-50.0); Monocytes % (manual) 7 (0-12); Platelet Estimate Adequate; Smudge Cells 1 /100 WBC
[2024-04-25 07:43] LABS: Hypochromia Moderate
[2024-04-25] MEDS: POTASSIUM PHOSPHATE 22 MEQ in SODIUM CHL 0.9% 100 ML IV ONE (13:00)
[2024-04-25] MEDS ORDERED: RIFA300C58 PO (13:31)
[2024-04-25] MEDS ORDERED: ATOR20TA50 PO (13:31)
[2024-04-25] MEDS ORDERED: NUTR-559 PO (13:31)
[2024-04-25] MEDS ORDERED: ISON300T68 PO (13:31)
[2024-04-25] MEDS ORDERED: ETHA400T20 PO (13:31)
[2024-04-26] VITALS (23 sets, daily range): BP systolic 104–139; BP diastolic 46–79; PULSE 81–95; RESP 19–26; TEMP 97.5–99.2; O2SAT 91–100
[2024-04-26 05:24] LABS: Red Cell Distribution Width 16.1 % (11.8-14.3)
[2024-04-26 05:27] LABS: Hematocrit 31.5 % (41.0-53.0); Mean Corpuscular Hemoglobin 20.7 pg (28.0-32.0); Mean Corpuscular Hgb Conc. 31.7 g/dL (32.0-36.0); Mean Corpuscular Volume 65.3 fL (80.0-100.0); Red Blood Cells 4.83 10^6/uL (4.5-5.90); White Blood Cell 6.1 10^3/uL (4.4-10.8)
[2024-04-26 05:30] LABS: Band Neutrophils % (manual) 0; Basophils % (manual) 0 (0.0-2.0); Blast Cells 0; Eosinophils % (manual) 0 (0-7); Metamyelocytes % 0; Myelocytes % 0; Promyelocytes % 0; Reactive Lymphocytes 0
[2024-04-26 05:45] LABS: Alanine Aminotransferase 100 U/L (7-40); Albumin 2.4 g/dL (3.2-4.8); Alkaline Phosphatase 159 U/L (46-116); Anion Gap 2 (5-15); Aspartate Aminotransferase 793 U/L (13-40); BUN/Creatinine Ratio 33.3 (10.0-20.0); Blood Urea Nitrogen 21 mg/dL (9-23); Calcium 8.1 mg/dL (8.7-10.4); Carbon Dioxide 31 mmol/L (20-30); Chloride 101 mmol/L (98-107); Glucose 124 mg/dL (74-106); Magnesium 1.9 mg/dL (1.6-2.6); Phosphorus 2.2 mg/dL (2.4-5.1); Potassium 3.9 mmol/L (3.5-5.1); Sodium 134 mmol/L (136-145)
[2024-04-26 05:46] LABS: Bilirubin, Total 5.3 mg/dL (0.2-1.0)
[2024-04-26 06:10] LABS: Hypochromia Marked; Lymphocytes % (manual) 3 (10.0-50.0); Monocytes % (manual) 5 (0-12); Platelet Estimate Adequate
[2024-04-26] MEDS: POTASSIUM PHOSPHATE 22 MEQ in SODIUM CHL 0.9% 100 ML IV ONE (09:38)
[2024-04-26] MEDS: MAGNESIUM SULFATE 1GM/100ML 100 ML IV ONE (09:41)
[2024-04-27] VITALS (19 sets, daily range): BP systolic 122–145; BP diastolic 57–76; PULSE 82–98; RESP 13–24; TEMP 97.5–98.5; O2SAT 93–100
[2024-04-27 04:58] LABS: Hemoglobin 9.4 g/dL (13.5-17.5); Red Cell Distribution Width 16.9 % (11.8-14.3); White Blood Cell 5.3 10^3/uL (4.4-10.8)
[2024-04-27 05:00] LABS: Hematocrit 29.6 % (41.0-53.0); Mean Corpuscular Hemoglobin 20.8 pg (28.0-32.0); Mean Corpuscular Hgb Conc. 31.7 g/dL (32.0-36.0); Mean Corpuscular Volume 65.7 fL (80.0-100.0); Red Blood Cells 4.51 10^6/uL (4.5-5.90)
[2024-04-27 05:08] LABS: Basophils % (manual) 0 (0.0-2.0); Blast Cells 0; Eosinophils % (manual) 0 (0-7); Metamyelocytes % 0; Promyelocytes % 0; Reactive Lymphocytes 0
[2024-04-27 05:15] LABS: Alanine Aminotransferase 159 U/L (7-40); Alkaline Phosphatase 143 U/L (46-116); Anion Gap 4 (5-15); Aspartate Aminotransferase 454 U/L (13-40); BUN/Creatinine Ratio 27.7 (10.0-20.0); Blood Urea Nitrogen 13 mg/dL (9-23); Carbon Dioxide 28 mmol/L (20-30); Chloride 101 mmol/L (98-107); Glucose 117 mg/dL (74-106); Magnesium 2.1 mg/dL (1.6-2.6); Potassium 4.3 mmol/L (3.5-5.1); Sodium 133 mmol/L (136-145)
[2024-04-27 05:16] LABS: Albumin 2.3 g/dL (3.2-4.8); Bilirubin, Total 4.5 mg/dL (0.2-1.0); Phosphorus 2.4 mg/dL (2.4-5.1); Total Protein 5.7 g/dL (5.7-8.2)
[2024-04-27 06:42] LABS: Band Neutrophils % (manual) 2; Hypochromia Marked; Lymphocytes % (manual) 6 (10.0-50.0); Monocytes % (manual) 5 (0-12); Myelocytes % 1; Platelet Estimate Decreased
[2024-04-28] VITALS (26 sets, daily range): BP systolic 109–151; BP diastolic 58–79; PULSE 84–114; RESP 15–29; TEMP 98–98.7; O2SAT 93–100
[2024-04-28 05:37] LABS: Hemoglobin 9.6 g/dL (13.5-17.5)
[2024-04-28 05:44] LABS: Hematocrit 30.5 % (41.0-53.0); Mean Corpuscular Hemoglobin 20.8 pg (28.0-32.0); Mean Corpuscular Hgb Conc. 31.6 g/dL (32.0-36.0); Mean Corpuscular Volume 65.8 fL (80.0-100.0); Red Blood Cells 4.63 10^6/uL (4.5-5.90); Red Cell Distribution Width 17.3 % (11.8-14.3); White Blood Cell 5.3 10^3/uL (4.4-10.8)
[2024-04-28 05:45] LABS: Band Neutrophils % (manual) 0; Basophils % (manual) 0 (0.0-2.0); Blast Cells 0; Eosinophils % (manual) 0 (0-7); Metamyelocytes % 0; Myelocytes % 0; Promyelocytes % 0; Reactive Lymphocytes 0
[2024-04-28 05:54] LABS: Alanine Aminotransferase 75 U/L (7-40); Albumin 2.5 g/dL (3.2-4.8); Alkaline Phosphatase 167 U/L (46-116); Anion Gap 4 (5-15); Aspartate Aminotransferase 250 U/L (13-40); BUN/Creatinine Ratio 18.4 (10.0-20.0); Blood Urea Nitrogen 9 mg/dL (9-23); Calcium 8.3 mg/dL (8.7-10.4); Carbon Dioxide 29 mmol/L (20-30); Chloride 101 mmol/L (98-107); Glucose 129 mg/dL (74-106); Potassium 3.8 mmol/L (3.5-5.1); Sodium 134 mmol/L (136-145)
[2024-04-28 05:55] LABS: Phosphorus 2.4 mg/dL (2.4-5.1)
[2024-04-28 05:56] LABS: Bilirubin, Total 3.3 mg/dL (0.2-1.0); Total Protein 5.9 g/dL (5.7-8.2)
[2024-04-28 06:52] LABS: Lymphocytes % (manual) 8 (10.0-50.0); Monocytes % (manual) 7 (0-12)
[2024-04-28 06:53] LABS: Hypochromia Marked; Platelet Estimate Decreased; Stomatocytes Few; Target Cell FEW
[2024-04-28] MEDS ORDERED: LEVALBUTEROL HCL 1.25 MG/3 ML NEB NEB PRN (14:30)
[2024-04-28] MEDS ORDERED: IPRATROPIUM BROM 0.5 MG/2.5ML INH SOL NEB PRN (14:30)
[2024-04-29] VITALS (21 sets, daily range): BP systolic 120–153; BP diastolic 60–85; PULSE 86–107; RESP 17–29; TEMP 97.2–98.6; O2SAT 94–98
[2024-04-29 05:37] LABS: White Blood Cell 4.7 10^3/uL (4.4-10.8)
[2024-04-29 05:40] LABS: Hematocrit 31.7 % (41.0-53.0); Hemoglobin 9.8 g/dL (13.5-17.5); Mean Corpuscular Hemoglobin 20.9 pg (28.0-32.0); Mean Corpuscular Hgb Conc. 30.9 g/dL (32.0-36.0); Mean Corpuscular Volume 67.6 fL (80.0-100.0); Red Blood Cells 4.68 10^6/uL (4.5-5.90); Red Cell Distribution Width 18.5 % (11.8-14.3)
[2024-04-29 05:44] LABS: Basophils % (manual) 0 (0.0-2.0); Blast Cells 0; Metamyelocytes % 0; Myelocytes % 0; Promyelocytes % 0; Reactive Lymphocytes 0
[2024-04-29 05:56] LABS: Alanine Aminotransferase 52 U/L (7-40); Albumin 2.6 g/dL (3.2-4.8); Alkaline Phosphatase 148 U/L (46-116); Anion Gap 6 (5-15); Aspartate Aminotransferase 146 U/L (13-40); BUN/Creatinine Ratio 12.2 (10.0-20.0); Blood Urea Nitrogen 6 mg/dL (9-23); Calcium 8.4 mg/dL (8.7-10.4); Carbon Dioxide 27 mmol/L (20-30); Chloride 102 mmol/L (98-107); Glucose 116 mg/dL (74-106); Potassium 3.6 mmol/L (3.5-5.1); Sodium 135 mmol/L (136-145)
[2024-04-29 05:57] LABS: Bilirubin, Total 2.9 mg/dL (0.2-1.0); Total Protein 6.1 g/dL (5.7-8.2)
[2024-04-29 06:07] LABS: Band Neutrophils % (manual) 5; Eosinophils % (manual) 1 (0-7); Hypochromia Marked; Lymphocytes % (manual) 12 (10.0-50.0); Monocytes % (manual) 4 (0-12); Polychromasia Slight; Target Cell FEW
[2024-04-29 06:08] LABS: Platelet Estimate Decreased
[2024-04-30] VITALS (27 sets, daily range): BP systolic 114–143; BP diastolic 60–77; PULSE 82–122; RESP 16–27; TEMP 97.7–98.2; O2SAT 95–98
[2024-04-30 05:10] LABS: Basophils # (auto) 0 10 ^3/uL (0-0.2); Eosinophils # (auto) 0.1 10 ^3/uL (0-0.8); Hemoglobin 8.8 g/dL (13.5-17.5); Lymphocytes # (auto) 0.3 10 ^3/uL (0.4-5.4); Mean Corpuscular Volume 66.3 fL (80.0-100.0); Monocytes # (auto) 0.4 10 ^3/uL (0-1.3); White Blood Cell 4.5 10^3/uL (4.4-10.8)
[2024-04-30 05:16] LABS: Basophils % (auto) 0.3 % (0.0-2.0); Hematocrit 28.5 % (41.0-53.0); Lymphocytes % (auto) 7.4 % (10.0-50.0); Mean Corpuscular Hemoglobin 20.5 pg (28.0-32.0); Mean Corpuscular Hgb Conc. 30.9 g/dL (32.0-36.0); Monocytes % (auto) 8.3 % (0.0-12.0); Neutrophils # (auto) 3.7 10 ^3/uL (1.6-8.6); Red Cell Distribution Width 19.7 % (11.8-14.3)
[2024-04-30 05:26] LABS: Alanine Aminotransferase 38 U/L (7-40); Albumin 2.7 g/dL (3.2-4.8); Alkaline Phosphatase 139 U/L (46-116); Anion Gap 2 (5-15); Aspartate Aminotransferase 88 U/L (13-40); Bilirubin, Total 2.2 mg/dL (0.2-1.0); Blood Urea Nitrogen 6 mg/dL (9-23); Calcium 8.4 mg/dL (8.7-10.4); Carbon Dioxide 32 mmol/L (20-30); Chloride 101 mmol/L (98-107); Glucose 203 mg/dL (74-106); Potassium 3.9 mmol/L (3.5-5.1); Sodium 135 mmol/L (136-145)
[2024-04-30] MEDS: rifAMPin 300 MG CAP PO ONE (11:08)
[2024-04-30] MEDS: ETHAMBUTOL HCL 400 MG TAB PO ONE (11:08)
[2024-04-30] MEDS: INSULIN LANTUS (GLARGINE) 1 /0.01ml (100units/ml) SC ONE (11:09)
[2024-04-30] MEDS: rifAMPin 300 MG CAP PO SCH (16:30)
[2024-05-01] VITALS (18 sets, daily range): BP systolic 105–153; BP diastolic 51–85; PULSE 92–108; RESP 14–27; TEMP 97.4–98.7; O2SAT 95–97
[2024-05-01 06:18] LABS: Hematocrit 28.4 % (41.0-53.0); Mean Corpuscular Hemoglobin 20.9 pg (28.0-32.0); Mean Corpuscular Hgb Conc. 31.8 g/dL (32.0-36.0); Mean Corpuscular Volume 65.7 fL (80.0-100.0); Red Blood Cells 4.32 10^6/uL (4.5-5.90); White Blood Cell 4.4 10^3/uL (4.4-10.8)
[2024-05-01 06:19] LABS: Red Cell Distribution Width 20.7 % (11.8-14.3)
[2024-05-01 06:21] LABS: Basophils % (manual) 0 (0.0-2.0); Blast Cells 0; Eosinophils % (manual) 0 (0-7); Metamyelocytes % 0; Myelocytes % 0; Promyelocytes % 0; Reactive Lymphocytes 0
[2024-05-01] MEDS: INSULIN LANTUS (GLARGINE) 1 /0.01ml (100units/ml) SC SCH (06:31)
[2024-05-01 06:35] LABS: Alanine Aminotransferase 100 U/L (7-40); Alkaline Phosphatase 148 U/L (46-116); Anion Gap 4 (5-15); Aspartate Aminotransferase 64 U/L (13-40); BUN/Creatinine Ratio 15.7 (10.0-20.0); Blood Urea Nitrogen 8 mg/dL (9-23); Calcium 8.5 mg/dL (8.5-10.1); Carbon Dioxide 30 mmol/L (20-30); Chloride 102 mmol/L (98-107); Glucose 113 mg/dL (74-106); Magnesium 1.9 mg/dL (1.6-2.6); Phosphorus 2.2 mg/dL (2.4-5.1); Potassium 3.7 mmol/L (3.5-5.1); Sodium 136 mmol/L (136-145); Total Protein 6.3 g/dL (5.7-8.2)
[2024-05-01 06:47] LABS: Band Neutrophils % (manual) 8; Lymphocytes % (manual) 16 (10.0-50.0); Macrocytosis Moderate; Monocytes % (manual) 6 (0-12); Platelet Estimate Adequate
[2024-05-01] MEDS: ETHAMBUTOL HCL 400 MG TAB PO SCH (09:18)
[2024-05-01] MEDS: POTASSIUM PHOSPHATE 22 MEQ in SODIUM CHL 0.9% 100 ML IV ONE (09:55)
[2024-05-01] MEDS: RIFABUTIN 150 MG CAP PO SCH (09:56)
[2024-05-01] MEDS ORDERED: ETHAMBUTOL HCL 400 MG TAB PO SCH (10:00)
[2024-05-01] MEDS ORDERED: rifAMPin 300 MG CAP PO SCH (10:00)
[2024-05-01] MEDS ORDERED: NITROGLYCERIN 0.4 MG SL TAB SL PRN (14:45)
[2024-05-02] VITALS (11 sets, daily range): BP systolic 115–135; BP diastolic 59–69; PULSE 93–115; RESP 18–20; TEMP 97.8–98.1; O2SAT 92–97
[2024-05-02 05:54] LABS: Basophils # (auto) 0 10 ^3/uL (0-0.2); Hemoglobin 8.8 g/dL (13.5-17.5); Lymphocytes # (auto) 0.5 10 ^3/uL (0.4-5.4); Mean Corpuscular Hemoglobin 20.9 pg (28.0-32.0); Mean Corpuscular Hgb Conc. 31.5 g/dL (32.0-36.0); Monocytes # (auto) 0.4 10 ^3/uL (0-1.3); Neutrophils # (auto) 3.5 10 ^3/uL (1.6-8.6)
[2024-05-02 05:57] LABS: Basophils % (auto) 1.1 % (0.0-2.0); Eosinophils # (auto) 0.1 10 ^3/uL (0-0.8); Hematocrit 27.9 % (41.0-53.0); Lymphocytes % (auto) 10.7 % (10.0-50.0); Mean Corpuscular Volume 66.3 fL (80.0-100.0); Monocytes % (auto) 8.9 % (0.0-12.0); Neutrophils % (auto) 76.3 % (37.0-80.0); Nucleated Red Blood Cells % 1.4 %; Red Blood Cells 4.21 10^6/uL (4.5-5.90); Red Cell Distribution Width 20.5 % (11.8-14.3); White Blood Cell 4.6 10^3/uL (4.4-10.8)
[2024-05-02 06:01] LABS: Alanine Aminotransferase 33 U/L (7-40); Albumin 2.9 g/dL (3.2-4.8); Alkaline Phosphatase 122 U/L (46-116); Anion Gap 2 (5-15); Aspartate Aminotransferase 52 U/L (13-40); BUN/Creatinine Ratio 16.7 (10.0-20.0); Bilirubin, Total 1.5 mg/dL (0.2-1.0); Blood Urea Nitrogen 8 mg/dL (9-23); Calcium 8.4 mg/dL (8.7-10.4); Carbon Dioxide 31 mmol/L (20-30); Chloride 104 mmol/L (98-107); Glucose 120 mg/dL (74-106); Phosphorus 2.8 mg/dL (2.4-5.1); Potassium 3.5 mmol/L (3.5-5.1); Sodium 137 mmol/L (136-145); Total Protein 6.3 g/dL (5.7-8.2)
[2024-05-02] MEDS: DOCUSATE CALCIUM 240 MG CAP PO PRN (12:30)
[2024-05-03] VITALS (11 sets, daily range): BP systolic 119–151; BP diastolic 54–76; PULSE 89–105; RESP 16–20; TEMP 98–98.7; O2SAT 92–96
[2024-05-03 06:18] LABS: Basophils # (auto) 0 10 ^3/uL (0-0.2); Basophils % (auto) 0.2 % (0.0-2.0); Eosinophils # (auto) 0.1 10 ^3/uL (0-0.8); Eosinophils % (auto) 2.8 % (0.0-7.0); Hematocrit 27.9 % (41.0-53.0); Hemoglobin 8.6 g/dL (13.5-17.5); Lymphocytes # (auto) 0.5 10 ^3/uL (0.4-5.4); Lymphocytes % (auto) 11.2 % (10.0-50.0); Mean Corpuscular Hemoglobin 20.8 pg (28.0-32.0); Mean Corpuscular Hgb Conc. 30.8 g/dL (32.0-36.0); Mean Corpuscular Volume 67.6 fL (80.0-100.0); Monocytes # (auto) 0.4 10 ^3/uL (0-1.3); Monocytes % (auto) 9.2 % (0.0-12.0); Neutrophils # (auto) 3.3 10 ^3/uL (1.6-8.6); Neutrophils % (auto) 76.6 % (37.0-80.0); Nucleated Red Blood Cells % 1.2 %; Red Blood Cells 4.12 10^6/uL (4.5-5.90); White Blood Cell 4.3 10^3/uL (4.4-10.8)
[2024-05-03 06:19] LABS: Red Cell Distribution Width 21.4 % (11.8-14.3)
[2024-05-03 06:35] LABS: Alanine Aminotransferase 34 U/L (7-40); Alkaline Phosphatase 114 U/L (46-116); Anion Gap 5 (5-15); BUN/Creatinine Ratio 16.3 (10.0-20.0); Blood Urea Nitrogen 8 mg/dL (9-23); Calcium 8.6 mg/dL (8.7-10.4); Carbon Dioxide 29 mmol/L (20-30); Chloride 103 mmol/L (98-107); Glucose 112 mg/dL (74-106); Potassium 3.7 mmol/L (3.5-5.1); Sodium 137 mmol/L (136-145)
[2024-05-03 06:36] LABS: Aspartate Aminotransferase 49 U/L (13-40); Bilirubin, Total 1.5 mg/dL (0.2-1.0); Total Protein 6.3 g/dL (5.7-8.2)
[2024-05-03 08:59] LABS: Hepatitis B Surface Antigen Negative (Negative)
[2024-05-03 09:21] LABS: Hepatitis A Ab IgM Negative; Hepatitis B Core IgM Negative
[2024-05-03 09:22] LABS: Hepatitis C Antibody Negative (Negative)
[2024-05-03] MEDS: ISONIAZID 300 MG TAB PO SCH (11:41)
[2024-05-04] VITALS (9 sets, daily range): BP systolic 111–139; BP diastolic 62–71; PULSE 59–116; RESP 16–96; TEMP 98–98.7; O2SAT 93–98
[2024-05-04 06:54] LABS: Alanine Aminotransferase 22 U/L (7-40); Albumin 3.2 g/dL (3.2-4.8); Alkaline Phosphatase 108 U/L (46-116); Anion Gap 7 (5-15); Aspartate Aminotransferase 45 U/L (13-40); BUN/Creatinine Ratio 16.3 (10.0-20.0); Blood Urea Nitrogen 8 mg/dL (9-23); Calcium 8.8 mg/dL (8.7-10.4); Carbon Dioxide 28 mmol/L (20-30); Chloride 102 mmol/L (98-107); Glucose 98 mg/dL (74-106); Potassium 3.6 mmol/L (3.5-5.1); Sodium 137 mmol/L (136-145)
[2024-05-04 06:55] LABS: Bilirubin, Total 1.5 mg/dL (0.2-1.0); Total Protein 6.6 g/dL (5.7-8.2)
[2024-05-04] MEDS ORDERED: DEXTROSE (50%) 50ML SYRG IV PRN (18:00)
[2024-05-04] MEDS: ACCU-CHEK COMFORT CURVE STRIP VI SCH (21:38)
[2024-05-04] MEDS: InsuLIN REG 1unit/0.01ml Soln (100units/ml) SC SCH (21:55)
[2024-05-05] VITALS (11 sets, daily range): BP systolic 116–145; BP diastolic 64–85; PULSE 82–118; RESP 16–18; TEMP 97.6–98.3; O2SAT 93–100
[2024-05-05 07:44] LABS: Alanine Aminotransferase 50 U/L (7-40); Alkaline Phosphatase 112 U/L (46-116); Anion Gap 8 (5-15); BUN/Creatinine Ratio 19.7 (10.0-20.0); Blood Urea Nitrogen 12 mg/dL (9-23); Calcium 8.7 mg/dL (8.7-10.4); Carbon Dioxide 27 mmol/L (20-30); Chloride 102 mmol/L (98-107); Glucose 148 mg/dL (74-106); Potassium 3.4 mmol/L (3.5-5.1); Sodium 137 mmol/L (136-145)
[2024-05-05 07:45] LABS: Albumin 3.2 g/dL (3.2-4.8); Aspartate Aminotransferase 39 U/L (13-40)
[2024-05-05 07:46] LABS: Bilirubin, Total 1.4 mg/dL (0.2-1.0); Total Protein 6.8 g/dL (5.7-8.2)
[2024-05-05] MEDS: POTASSIUM CHL 20 Meq TABLET PO ONE (17:22)
[2024-05-06] VITALS (8 sets, daily range): BP systolic 103–119; BP diastolic 51–63; PULSE 70–106; RESP 18–20; TEMP 97.9–99.4; O2SAT 92–97
[2024-05-06 06:27] LABS: Alanine Aminotransferase 31 U/L (7-40); Albumin 3.4 g/dL (3.2-4.8); Alkaline Phosphatase 109 U/L (46-116); Anion Gap 6 (5-15); Aspartate Aminotransferase 40 U/L (13-40); BUN/Creatinine Ratio 9.4 (10.0-20.0); Blood Urea Nitrogen 5 mg/dL (9-23); Calcium 8.7 mg/dL (8.5-10.1); Carbon Dioxide 27 mmol/L (20-30); Chloride 104 mmol/L (98-107); Glucose 111 mg/dL (74-106); Sodium 137 mmol/L (136-145)
[2024-05-06 06:28] LABS: Bilirubin, Total 1.8 mg/dL (0.2-1.0); Total Protein 6.8 g/dL (5.7-8.2)
[2024-05-06 07:49] LABS: Basophils # (auto) 0 10 ^3/uL (0-0.2); Basophils % (auto) 0.5 % (0.0-2.0); Eosinophils # (auto) 0.1 10 ^3/uL (0-0.8); Eosinophils % (auto) 1.5 % (0.0-7.0); Hematocrit 28.8 % (41.0-53.0); Hemoglobin 8.6 g/dL (13.5-17.5); Lymphocytes # (auto) 0.4 10 ^3/uL (0.4-5.4); Lymphocytes % (auto) 9.5 % (10.0-50.0); Mean Corpuscular Hemoglobin 20.5 pg (28.0-32.0); Mean Corpuscular Hgb Conc. 29.8 g/dL (32.0-36.0); Mean Corpuscular Volume 68.9 fL (80.0-100.0); Monocytes # (auto) 0.3 10 ^3/uL (0-1.3); Monocytes % (auto) 7.9 % (0.0-12.0); Neutrophils # (auto) 3.3 10 ^3/uL (1.6-8.6); Neutrophils % (auto) 80.6 % (37.0-80.0); Nucleated Red Blood Cells % 1.4 %; Red Blood Cells 4.18 10^6/uL (4.5-5.90); White Blood Cell 4.1 10^3/uL (4.4-10.8)
[2024-05-06 07:51] LABS: Red Cell Distribution Width 22.8 % (11.8-14.3)
[2024-05-06 11:42] LABS: Urine Bacteria FEW /hpf (None Seen); Urine Blood Negative /uL (Negative); Urine Clarity Clear (Clear); Urine Color Yellow (Yellow); Urine Protein, UAD Negative (Negative); Urine Specific Gravity 1.009 (1.001-1.035); Urine Urobilinogen Normal (Negative); Urine WBC 1 /hpf (0 - 3)
[2024-05-06 12:32] LABS: Platelet Estimate Adequate
[2024-05-06 12:34] LABS: Anisocytosis Slight; Hypochromia Marked; Target Cell FEW; Tear Drop Cells FEW
[2024-05-07] VITALS (10 sets, daily range): BP systolic 104–129; BP diastolic 51–71; PULSE 80–111; RESP 16–18; TEMP 97.3–98; O2SAT 92–98
[2024-05-07 05:13] LABS: Basophils # (auto) 0 10 ^3/uL (0-0.2); Eosinophils # (auto) 0.1 10 ^3/uL (0-0.8); Hemoglobin 8.9 g/dL (13.5-17.5); Lymphocytes # (auto) 0.6 10 ^3/uL (0.4-5.4); Monocytes # (auto) 0.3 10 ^3/uL (0-1.3); Nucleated Red Blood Cells % 0.6 %
[2024-05-07 05:18] LABS: Basophils % (auto) 0.5 % (0.0-2.0); Eosinophils % (auto) 2.8 % (0.0-7.0); Hematocrit 28.1 % (41.0-53.0); Mean Corpuscular Hemoglobin 21.5 pg (28.0-32.0); Mean Corpuscular Hgb Conc. 31.6 g/dL (32.0-36.0); Monocytes % (auto) 6.8 % (0.0-12.0); Neutrophils # (auto) 3.5 10 ^3/uL (1.6-8.6); Neutrophils % (auto) 76.9 % (37.0-80.0); Red Blood Cells 4.13 10^6/uL (4.5-5.90); White Blood Cell 4.6 10^3/uL (4.4-10.8)
[2024-05-07 05:20] LABS: Red Cell Distribution Width 22.2 % (11.8-14.3)
[2024-05-07 05:25] LABS: Alanine Aminotransferase 16 U/L (7-40); Albumin 3.5 g/dL (3.2-4.8); Alkaline Phosphatase 102 U/L (46-116); Anion Gap 2 (5-15); Aspartate Aminotransferase 34 U/L (13-40); Blood Urea Nitrogen 7 mg/dL (9-23); Calcium 8.8 mg/dL (8.5-10.1); Carbon Dioxide 32 mmol/L (20-30); Chloride 105 mmol/L (98-107); Glucose 130 mg/dL (74-106); Sodium 139 mmol/L (136-145)
[2024-05-07 05:26] LABS: Bilirubin, Total 1.5 mg/dL (0.2-1.0); Total Protein 6.8 g/dL (5.7-8.2)
[2024-05-07] MEDS ORDERED: ETHA400T20 PO (12:53)
[2024-05-07] MEDS ORDERED: ISON300T68 PO (12:53)
[2024-05-07] MEDS ORDERED: RIFA1CAP5 PO (12:53)
[2024-05-07] MEDS ORDERED: PYRI50TA9 GT (12:56)
[2024-05-07] MEDS ORDERED: TAMS0.4C36 PO (12:57)
[2024-05-08] VITALS (11 sets, daily range): BP systolic 110–142; BP diastolic 58–76; PULSE 80–112; RESP 15–94; TEMP 97.8–98.5; O2SAT 94–98
[2024-05-08] MEDS: metFORMIN HYDROCHLORIDE 500 MG TAB PO ONE (17:26)
[2024-05-08] MEDS: TAMSULOSIN HYDROCHLORIDE 0.4 MG CAP PO SCH (17:26)
[2024-05-09] VITALS (8 sets, daily range): BP systolic 127–144; BP diastolic 62–72; PULSE 80–101; RESP 16–20; TEMP 98–98.7; O2SAT 94–97
[2024-05-09 06:38] LABS: Basophils # (auto) 0 10 ^3/uL (0-0.2); Eosinophils # (auto) 0.1 10 ^3/uL (0-0.8); Hemoglobin 9.2 g/dL (13.5-17.5); Lymphocytes # (auto) 0.4 10 ^3/uL (0.4-5.4); Monocytes # (auto) 0.4 10 ^3/uL (0-1.3)
[2024-05-09 06:41] LABS: Basophils % (auto) 1.2 % (0.0-2.0); Eosinophils % (auto) 2.8 % (0.0-7.0); Hematocrit 28.9 % (41.0-53.0); Mean Corpuscular Hemoglobin 21.4 pg (28.0-32.0); Mean Corpuscular Hgb Conc. 31.7 g/dL (32.0-36.0); Mean Corpuscular Volume 67.7 fL (80.0-100.0); Monocytes % (auto) 8.9 % (0.0-12.0); Neutrophils # (auto) 3.1 10 ^3/uL (1.6-8.6); Neutrophils % (auto) 78.1 % (37.0-80.0); Nucleated Red Blood Cells % 1.3 %; Red Blood Cells 4.27 10^6/uL (4.5-5.90)
[2024-05-09 06:47] LABS: Alanine Aminotransferase 15 U/L (7-40); Alkaline Phosphatase 106 U/L (46-116); Anion Gap 4 (5-15); Blood Urea Nitrogen 9 mg/dL (9-23); Calcium 8.8 mg/dL (8.5-10.1); Carbon Dioxide 31 mmol/L (20-30); Chloride 104 mmol/L (98-107); Glucose 124 mg/dL (74-106); Potassium 3.7 mmol/L (3.5-5.1); Sodium 139 mmol/L (136-145)
[2024-05-09 06:48] LABS: Albumin 3.6 g/dL (3.2-4.8); Aspartate Aminotransferase 31 U/L (13-40); Bilirubin, Total 1.3 mg/dL (0.2-1.0)
[2024-05-09 07:17] LABS: Red Cell Distribution Width 22.2 % (11.8-14.3)
[2024-05-09] MEDS ORDERED: metFORMIN HYDROCHLORIDE 500 MG TAB PO SCH (17:00)
[2024-05-09] MEDS: metFORMIN HYDROCHLORIDE 500 MG TAB PO SCH (19:10)
[2024-05-10] VITALS (9 sets, daily range): BP systolic 103–130; BP diastolic 54–67; PULSE 17–111; RESP 16–20; TEMP 97.8–98.8; O2SAT 94–96
[2024-05-10 06:09] LABS: Chloride 103 mmol/L (98-107); Sodium 140 mmol/L (136-145)
[2024-05-10 06:10] LABS: Anion Gap 9 (5-15); Carbon Dioxide 28 mmol/L (20-30)
[2024-05-10 06:11] LABS: Calcium 8.9 mg/dL (8.7-10.4)
[2024-05-10 06:15] LABS: BUN/Creatinine Ratio 12.2 (10.0-20.0); Blood Urea Nitrogen 6 mg/dL (9-23); Glucose 127 mg/dL (74-106)
[2024-05-11] VITALS (9 sets, daily range): BP systolic 110–140; BP diastolic 57–78; PULSE 86–113; RESP 16–18; TEMP 97.6–98.1; O2SAT 95–97
[2024-05-11 06:29] LABS: Chloride 103 mmol/L (98-107); Potassium 3.6 mmol/L (3.5-5.1); Sodium 140 mmol/L (136-145)
[2024-05-11 06:30] LABS: Anion Gap 9 (5-15); Carbon Dioxide 28 mmol/L (20-30)
[2024-05-11 06:31] LABS: Calcium 8.9 mg/dL (8.7-10.4)
[2024-05-11 06:35] LABS: BUN/Creatinine Ratio 11.9 (10.0-20.0); Blood Urea Nitrogen 7 mg/dL (9-23); Glucose 127 mg/dL (74-106)
[2024-05-12 01:00] VITALS: BP 137/56; PULSE 97; RESP 17; TEMP 97.7; O2SAT 96
[2024-05-12 05:00] VITALS: BP 106/56; PULSE 94; RESP 16; TEMP 97.4; O2SAT 95
[2024-05-12 07:22] LABS: Anion Gap 2 (5-15); Carbon Dioxide 32 mmol/L (20-30); Chloride 104 mmol/L (98-107); Potassium 3.5 mmol/L (3.5-5.1); Sodium 138 mmol/L (136-145)
[2024-05-12 07:23] LABS: Calcium 8.9 mg/dL (8.5-10.1)
[2024-05-12 07:28] LABS: BUN/Creatinine Ratio 10.6 (10.0-20.0); Blood Urea Nitrogen 5 mg/dL (9-23); Glucose 107 mg/dL (74-106)
[2024-05-12 09:00] VITALS: BP 135/67; PULSE 92; RESP 17; TEMP 97.7; O2SAT 95
[2024-05-12 10:00] VITALS: O2SAT 95
[2024-05-12 11:18] VITALS: BP 134/77; TEMP 36.5
== END 2024-05-12 12:45 | disposition home health service (06) | DRG 710 ==
LOC: ER 07:36 → EDBD 07:36 → TELE 09:43 → DOU IN ICU 15:44 → ICU CENTRL 15:46 → ICU WEST 04-07 06:11 → DOU IN ICU 04-15 02:20 → EAST 05-01 13:40
PROVIDERS: ADMIT Internal Medicine Pulmonary Disease; ATTEND Emergency Medicine
PROC: 5A1955Z Respiratory Ventilation, Greater than 96 Consecutive Hours (ICD-10-PCS; principal; 2024-04-04)
PROC: 0BH17EZ Insertion of Endotracheal Airway into Trachea, Via Natural or Artificial Opening (ICD-10-PCS; 2024-04-04)
PROC: 0W9930Z Drainage of Right Pleural Cavity with Drainage Device, Percutaneous Approach (ICD-10-PCS; 2024-04-04)
PROC: 5A09357 Assistance with Respiratory Ventilation, Less than 24 Consecutive Hours, Continuous Positive Airway Pressure (ICD-10-PCS; 2024-04-04)
PROC: 02HV33Z Insertion of Infusion Device into Superior Vena Cava, Percutaneous Approach (ICD-10-PCS; 2024-04-05)
PROC: B548ZZA Ultrasonography of Superior Vena Cava, Guidance (ICD-10-PCS; 2024-04-05)
PROC: 0BNK0ZZ Release Right Lung, Open Approach (ICD-10-PCS; 2024-04-07)
PROC: 0W9900Z Drainage of Right Pleural Cavity with Drainage Device, Open Approach (ICD-10-PCS; 2024-04-07)
PROC: 05HC33Z Insertion of Infusion Device into Left Basilic Vein, Percutaneous Approach (ICD-10-PCS; 2024-04-18)
PROC: B54NZZA Ultrasonography of Left Upper Extremity Veins, Guidance (ICD-10-PCS; 2024-04-18)
DX: A41.89 Other specified sepsis (principal); R65.21 Severe sepsis with septic shock; G93.41 Metabolic encephalopathy; E46 Unspecified protein-calorie malnutrition; J96.02 Acute respiratory failure with hypercapnia; J96.01 Acute respiratory failure with hypoxia; I21.4 Non-ST elevation (NSTEMI) myocardial infarction; J18.8 Other pneumonia, unspecified organism; A15.9 Respiratory tuberculosis unspecified; G20.A1 Parkinson's disease without dyskinesia, without mention of fluctuations; G93.1 Anoxic brain damage, not elsewhere classified; J90 Pleural effusion, not elsewhere classified; Z20.822 Contact with and (suspected) exposure to COVID-19; I10 Essential (primary) hypertension; E78.5 Hyperlipidemia, unspecified; N40.0 Benign prostatic hyperplasia without lower urinary tract symptoms; I25.10 Atherosclerotic heart disease of native coronary artery without angina pectoris; Z79.899 Other long term (current) drug therapy; Z79.02 Long term (current) use of antithrombotics/antiplatelets; Z95.5 Presence of coronary angioplasty implant and graft; Z79.82 Long term (current) use of aspirin; Z86.74 Personal history of sudden cardiac arrest; Z68.26 Body mass index [BMI] 26.0-26.9, adult
CPT/HCPCS: 36415; 36556; 36600; 70450; 70496; 71045; 71250; 71275; 76604; 76937; 80048; 80053; 80069; 80074; 81001; 82140; 82306; 82550; 82607; 82728; 82746; 82805; 82962; 83540; 83550; 83605; 83615; 83735; 83880; 83986; 84100; 84132; 84443; 84484; 85007; 85014; 85018; 85025; 85027; 85610; 85730; 86141; 86703; 86850; 86900; 86901; 87040; 87070; 87077; 87081; 87086; 87205; 87426; 87804; 89051; 92507; 92610; 93005; 94002; 94003; 94640; 94660; 95819; 96365; 96368; 96375; 97110; 97116; 97163; 97530; 99291; C9113; G0378; J0330; J1450; J1815; J2001; J2248; J2250; J2405; J3480; J7060

== ENCOUNTER → 2024-07-21 | Outpatient (CLI) | payer MEDICARE, OTHER ==
[~2024-07-21] MED LIST changes: +ACET-1882 PO; +ASPI-325 PO; -ATOR10TA PO; +ATOR20TA50 PO; -CIPR500T4 PO; -CLON0.1T PO; +DOCU240C23 PO; +ETHA400T20 PO; -FINA5TAB4 PO; +ISON300T68 PO; +LACT10SO3 PO; -LOSA-534 PO; -NITR100C6 PO; +NUTR-559 PO; -OXYB5TAB14 PO; +PANT40T PO; +PYRI50TA9 GT; +PYRI50TA9 PO; +RIFA1CAP5 PO; -TAMS0.4C36 PO; +TAMS0.4C39 PO; +TICA90TA PO
== END | disposition home or self-care (01) ==
LOC: Rad HDHVI 10:24
PROVIDERS: ATTEND Internal Medicine Cardiovascular Disease
DX: J98.11 Atelectasis (principal); J43.9 Emphysema, unspecified; M51.34 Other intervertebral disc degeneration, thoracic region; M47.814 Spondylosis without myelopathy or radiculopathy, thoracic region; I70.0 Atherosclerosis of aorta; Z86.11 Personal history of tuberculosis
CPT/HCPCS: 71250